=== PATIENT | female | born 1945 | race Caucasian/White ===

== ENCOUNTER 2016-04-18 22:01 | Inpatient (IN) | payer MEDICARE ==
[~2016-04-18] VITALS: Ht 175.3 cm; Wt 89.4 kg
[~2016-04-18 22:01] MED LIST: ALBU18HF2 INH; BENZ-16 PO; BENZ100C97 PO; CINN500C14 PO; DULO20CA PO; DULO30CA2 PO; FURO40TA5 PO; INSU100I14 SQ; INSU3INS3 SQ; LABE200T PO; LEVO500T63 PO; MAGN400C PO; MAGN400T6 PO; MULT-798 PO; POTA10CA37 PO; PRED10TA PO; PREG50CA PO; SIMV40TA82 PO; ZINC50TA39 PO
--- OUTSIDE RECORDS SUMMARY | 2016-04-18 22:13 | XMS REPORT | Continuity of Care Document ---
Author Author [facility] Organization [facility] Address Unknown Phone Unavailable Care Team Providers Care Musician Instrumental Name Role Phone JOSE HUGHES MD Primary Care Physician [phone] Insurance Providers Payer Name Policy Number Subscriber Name Relationship Medicarehumana Gold Hmo [id number] Yadira Gramajo 17 Self Advance Directives Directive Response Recorded Date/Time Advanced Directives Type DNR Documentation 01/12/14 9:39am Problems Medical Problems Problem Onset Date Status History of COPD Unknown Active Right lower lobe pneumonia Unknown Active History of COPD Unknown Active Hypertensive emergency Unknown Active CHF (congestive heart failure) Unknown Active Pneumonia Unknown Active Hypertensive emergency Unknown Active History of pneumonia Unknown Active Hypertensive emergency Unknown Active Medications Medication Dose Route Sig Days/Qty Instructions Order Date Discontinued Date Status Duloxetine Hcl 1 Cap PO DAILY 09/10/12 Active Pregabalin 1 Cap PO TWICE A DAY 09/10/12 Active Metoprolol Tartrate 1 Tab PO TWICE A DAY 09/10/12 Active Furosemide 1 Tab PO TWICE A DAY 09/10/12 Active Potassium Chloride 1 Cap PO TWICE A DAY 09/10/12 Active Simvastatin 1 Tab PO BEDTIME 09/10/12 Active Fish Oil/[place]-3 Fatty Acids 1 Cap PO DAILY 09/11/12 Active Multivits W-Ca,Fe,Other Min 1 Tab PO DAILY 09/11/12 Active Vitamin E 400 Unit PO DAILY 09/11/12 Active Ergocalciferol 400 Unit PO DAILY 09/11/12 Active Magnesium 200 Mg PO DAILY 2 tab, 400mg po daily 09/11/12 Active Ipratropium/Albuterol Sulfate 14.7 Gm IH FOUR TIMES DAILY 1 Qty Active Aspirin 325 Mg PO 01/12/14 Active Levofloxacin DAILY 01/12/14 Active Lisinopril 10 Mg PO DAILY 01/12/14 Active Lisinopril 1 Tab PO BEDTIME 01/12/14 Active Lisinopril 20 Mg PO BEDTIME Take 1 tablet, by mouth, one time a day (at BEDTIME). 01/12/14 Active Amlodipine Besylate 5 Mg PO DAILY 30 Qty 01/12/14 Active Social History Social History Problem Response Recorded Date/Time Smoking Status Current every day smoker 06/24/2013 11:50pm When did patient START smoking? 1960 01/12/2014 9:40am Chewing Tobacco Status No 06/24/2013 11:50pm Hx Substance Use No 01/12/2014 9:40am Hx Alcohol Use No 01/12/2014 9:40am Has the pt used tobacco in the last 12 months Yes 09/10/2012 9:58am Query Response Start Date Stop Date Smoking Status Current some day smoker Hospital Discharge Instructions No hospital discharge instructions. Plan of Care No plan of care. Functional Status Query Response Date Recorded Physical Hygiene Self January 12, 2014 9:40am Disabilities None January 12, 2014 9:40am Devices Used Wheelchair January 12, 2014 9:40am Dressing Self January 12, 2014 9:40am Ambulation Self January 12, 2014 9:40am Diet Self January 12, 2014 9:40am Mental Status Alert Oriented January 12, 2014 12:04pm Disabilities None January 12, 2014 9:40am Devices Used Wheelchair January 12, 2014 9:40am Physical Hygiene Self January 12, 2014 9:40am Dressing Self January 12, 2014 9:40am Ambulation Self January 12, 2014 9:40am Diet Self January 12, 2014 9:40am Allergies, Adverse Reactions, Alerts Allergen Type Severity Reaction Status Last Updated Penicillin Allergy Unknown Active 06/25/13 Sulfa (Sulfonamide Antibiotics) Allergy Unknown Active 06/25/13 Immunizations Name Given Type Hx Influenza Vaccination Y FALL 2011 Historical Hx Pneumococcal Vaccination Y WITHIN THE PAST 5 YEARS Historical Hx Influenza Vaccination Y FALL 2011 Historical Vital Signs Acute Vital Signs Vital Response Date/Time Temperature (Fahrenheit) 96.6 deg F (96.8 - 99.1) Temperature (Calculated Celsius) 35.97756 degrees C (36.0 - 37.3) Pulse Rate (adult) 60 bpm (60 - 100) Respiratory Rate 16 breaths/min (10 - 20) O2 Sat by Pulse Oximetry 94 % (90 - 100) Oxygen Flow Rate 4 L/min Blood Pressure 145/66 mm Hg Height 5 ft 9 in Weight 195 lb Body Mass Index 28.0 kg/m^2 Results Test Source Date Result Interp. Ref. Range Comments Alanine Aminotransferase (ALT/SGPT) January 12, 2014 10:42am 31 U/L N 9 -52 Albumin January 12, 2014 10:42am 4.0 G/DL N 3.5-5.0 Albumin/Globulin Ratio January 12, 2014 10:42am 1.3 RATIO N 1.1-2.2 Alkaline Phosphatase January 12, 2014 10:42am 91 U/L N 38-126 Anion Gap January 12, 2014 10:42am 10 MEQ/L N 5-15 Aspartate Amino Transf (AST/SGOT) January 12, 2014 10:42am 22 U/L N 14- 36 BUN/Creatinine Ratio January 12, 2014 10:42am 20 RATIO N 6-26 Band Neutrophils # September 01, 2013 3:13pm 0.1 T/MM3 - Band Neutrophils % September 01, 2013 3:13pm 1.0 % N 0-6 Basophils # (Auto) January 12, 2014 10:42am 0.1 T/MM3 N 0-0.2 Basophils # (Manual) August 25, 2013 3:20pm 0.0 T/MM3 N 0-0.2 Basophils % (Manual) August 25, 2013 3:20pm 0.0 % N 0-2 Basophils (%) (Auto) January 12, 2014 10:42am 1.1 % N 0-2 Blood Urea Nitrogen January 12, 2014 10:42am 16.0 MG/DL N 7-17 C-Reactive Protein September 15, 2013 9:40am 7.3 MG/L N 0-9 Calcium Level January 12, 2014 10:42am 10.7 MG/DL H 8.4-10.2 Calculated Osmolality January 12, 2014 10:42am 275 MOSM/KG N 261-280 Carbon Dioxide Level January 12, 2014 10:42am 35 MEQ/L H 22-30 Chloride Level January 12, 2014 10:42am 95 MEQ/L L 98-107 Creatinine January 12, 2014 10:42am 0.8 MG/DL N 0.7-1.2 Differential Total Cells Counted May 25, 2008 2:14pm 100 % - Eosinophils # (Auto) January 12, 2014 10:42am 0.2 T/MM3 N 0-0.5 Eosinophils # (Manual) September 08, 2013 2:45pm 0.3 T/MM3 N 0-0.5 Eosinophils % (Manual) September 08, 2013 2:45pm 3.0 % N 0-4 Eosinophils (%) (Auto) January 12, 2014 10:42am 1.8 % N 0-4 Erythrocyte Sedimentation Rate September 15, 2013 9:40am 3 MM/HR N 0-20 Globulin January 12, 2014 10:42am 3.0 G/DL N 2.4-3.6 Glucose Level January 12, 2014 10:42am 197 MG/DL H 65-110 Hematocrit January 12, 2014 10:42am 47.4 % H 36-46 Hemoglobin January 12, 2014 10:42am 15.5 GM/DL N 12-16 Lipase September 11, 2012 10:20am 428 U/L H 23-300 COMMENT WILL CALL WHEN PT IS ADMITTED Lymphocytes # (Auto) January 12, 2014 10:42am 1.2 T/MM3 N 1-4.8 Lymphocytes # (Manual) September 08, 2013 2:45pm 1.5 T/MM3 N 1-4.8 Lymphocytes % (Manual) September 08, 2013 2:45pm 17.0 % L 23-45 Lymphocytes (%) (Auto) January 12, 2014 10:42am 10.9 % L 23-45 Magnesium Level September 15, 2013 9:40am 1.7 MG/DL N 1.6-2.3 Mean Corpuscular Hemoglobin January 12, 2014 10:42am 30.3 UUG N 26-34 Mean Corpuscular Hemoglobin Concent January 12, 2014 10:42am 32.7 GM/DL N 31-37 Mean Corpuscular Volume January 12, 2014 10:42am 92.8 UM3 N 80-100 Mean Platelet Volume January 12, 2014 10:42am 10.1 UM3 N 9.4-12.4 Monocytes # (Auto) January 12, 2014 10:42am 0.4 T/MM3 N 0-0.8 Monocytes # (Manual) September 08, 2013 2:45pm 0.5 T/MM3 N 0-0.8 Monocytes % (Manual) September 08, 2013 2:45pm 6.0 % N 0-9.0 Monocytes (%) (Auto) January 12, 2014 10:42am 4.0 % N 0-9.0 Neutrophils # (Auto) January 12, 2014 10:42am 8.8 T/MM3 H 1.8-7.7 Neutrophils # (Manual) September 08, 2013 2:45pm 6.4 T/MM3 N 1.8-7.7 Neutrophils % (Manual) September 08, 2013 2:45pm 73.0 % H 33-66 Neutrophils (%) (Auto) January 12, 2014 10:42am 81.8 % H 33-66 Platelet Count January 12, 2014 10:42am 198 T/MM3 N 130-400 Potassium Level January 12, 2014 10:42am 4.9 MEQ/L N 3.6-5 RDW Standard Deviation January 12, 2014 10:42am 47.0 FL N 36.9-50.2 Reactive Lymphocytes May 18, 2008 2:25pm 3.0 % H 0-0 Red Blood Count January 12, 2014 10:42am 5.11 M/MM3 N 4.00-5.20 Sodium Level January 12, 2014 10:42am 140 MEQ/L N 134-144 Total Bilirubin January 12, 2014 10:42am 0.70 MG/DL N 0.20-1.30 Total Protein January 12, 2014 10:42am 7.0 G/DL N 6.3-8.2 Troponin I January 12, 2014 10:42am < 0.012 ng/ml 0-0.12 Vancomycin Level Trough September 15, 2013 9:40am 18.35 UG/ML N 15-20 White Blood Count January 12, 2014 10:42am 10.7 T/MM3 N 4.5-11.0 Chemistry Specimen Hemolysis January 12, 2014 10:42am < 15 0-25 0-25 : No Hemolysis.26-70: Slight Hemolysis - can falsely elevate K and Urine Protein. 71-285: Moderate Hemolysis - can falsely elevate K, Troponin I, CA 19-9, PTH, CSF GLucose, and Urine Protein, and can falsely decrease Phenytoin. 286-999: Gross Hemolysis - can falsely elevate K, Troponin I, CA 19-9, PTH, CSF Glucose, and Urine Protine, and can falsely decrease Phenytoin. Recommend specimen recollection. Lab Scanned Report September 15, 2013 8:08pm LAB TEST FORM REQUEST [id number] - Atypical/Reactive Lymphocytes May 18, 2008 2:25pm 0.2 T/MM3 H 0-0 Turbidity January 12, 2014 10:42am < 20 0-20 Reactive Lymphocytes % September 08, 2013 2:45pm 1.0 % DH 0-0 Glomerular Filtration Rate Calc January 12, 2014 10:42am 71 - Reactive Lymphocytes # September 08, 2013 2:45pm 0.1 T/MM3 H 0-0 Immature Granulocyte # (Auto) January 12, 2014 10:42am 0.04 T/MM3 H 0.00-0.03 Immature Granulocyte % (Auto) January 12, 2014 10:42am 0.4 % N 0.0-0.5 Venous Blood Lactate June 25, 2013 12:05am 2.7 MMOL/L H 0.6-2.2 Procalcitonin June 25, 2013 12:05am < 0.05 NG/ML - PCT </=0.5 ng/mL - sepsis not likely;PCT >0.5 and </=2 ng/mL - sepsis possible; PCT >2 ng/mL - sepsis likely; PCT >/=10 ng/mL - systemic inflammatory response - sepsis or septic shock highly indicated. Icterus Index January 12, 2014 10:42am < 2 0-7 AD-Pqh-Z-Type Natriuretic Peptide January 12, 2014 10:42am 1030 PG/ML H 0-175 Rule in cut points: <50 years old=450; 50-75 years old=900; >75 years old=1800; When utilizing ProBNP rule-in cut points, adjustment for impaired renal function is typically not required. Blood Culture Blood June 25, 2013 12:05am NO GROWTH AFTER 5 DAYS Name: YADIRA GRAMAJO Unit #: [id number] : 1945 Sex: F Loc / Svc: ED DOS: Signed Report #: [id number] DIAGNOSTIC IMAGING REPORT TYPE OF EXAM: CT HEAD W/O CONTRAST Dictated By: RICO ROCHA MD INDICATION: ITS.REASON: hypertensive emergency COMPARISON: none. CT HEAD W/O CONTRAST: Evidence of mild chronic small vessel ischemic changes in the brain. No evidence of significant atrophy. No evidence of acute infarct, hemorrhage, tumor, or significant ventriculomegaly. IMPRESSION: Small vessel ischemic findings. No evidence of acute disease. . Procedures No known history of procedures. Encounters Encounter Location Date/Time Departed Emergency Room [facility] 01/12/14 9:30am Recent Diagnosis
--- OUTSIDE RECORDS SUMMARY | 2016-04-18 22:13 | XMS REPORT | Continuity of Care Document ---
Author Author [facility] Organization [facility] Address Unknown Phone Unavailable Care Team Providers Care Doper Name Role Phone JOSE HUGHES MD Primary Care Physician [phone] Insurance Providers Payer Name Policy Number Subscriber Name Relationship Medicarehumana Gold Hmo [id number] Yadira Gramajo 17 Self Advance Directives Directive Response Recorded Date/Time Ordered Resuscitation Status Full Code 06/03/14 7:19am Problems Medical Problems Problem Onset Date Status [...] TWICE A DAY 09/10/12 Active Metoprolol Tartrate 0.5 Tab PO TWICE A DAY 09/10/12 Active Simvastatin 1 Tab PO BEDTIME 09/10/12 Active Fish Oil/[place]-3 Fatty Acids 1 Cap PO DAILY 09/11/12 Active Multivits W-Ca,Fe,Other Min 1 Tab PO DAILY 09/11/12 Active Vitamin E 400 Unit PO DAILY 09/11/12 Active Ipratropium/Albuterol Sulfate 14.7 Gm IH FOUR TIMES DAILY 1 Qty Inhale 1 puff QID 06/25/13 Active Duloxetine HCl 1 Cap PO BEDTIME 06/03/14 Active Amlodipine Besylate 0.5 Tab PO DAILY 06/03/14 Active Magnesium Oxide 400 Mg PO DAILY 06/03/14 Active Vitamin A Palmitate 1 Cap PO DAILY 06/03/14 Active Vitamin B Complex 1 Cap PO DAILY 06/03/14 Active Ascorbic Acid Unknown Dose PO DAILY 06/03/14 Active Cholecalciferol (Vitamin D3) Unknown Dose 06/03/14 Active Sulfamethoxazole/Trimethoprim 1 Tab PO TWICE A DAY 06/03/14 Active Aspirin 1 Tab PO DAILY 06/03/14 Active Insulin Lispro 12 Dose SQ THREE TIMES A DAY 06/03/14 Active Insulin Glargine,Hum.rec.anlog 30 Unit SQ BEDTIME 06/03/14 Active Social History Social History Problem Response Recorded Date/Time Chewing Tobacco Status No 06/24/2013 11:50pm Hx Substance Use No 06/03/2014 10:58am Hx Alcohol Use No 06/03/2014 10:58am Has the pt used tobacco in the last 12 months Yes 06/03/2014 10:58am Query Response Start Date Stop Date Smoking Status Current every day smoker Hospital Discharge Instructions No hospital discharge instructions. Plan of Care No plan of care. Functional Status Query Response Date Recorded Physical Hygiene Self January 12, 2014 9:40am Physical Hygiene Self January 12, 2014 9:40am Allergies, Adverse Reactions, Alerts Allergen Type Severity Reaction Status Last Updated Penicillin Allergy Unknown Active 06/25/13 Sulfa (Sulfonamide Antibiotics) Allergy Unknown Active 06/25/13 Minocycline Allergy Intermediate HIVES Active 06/03/14 Immunizations Name Given Type Hx Influenza Vaccination Y FALL 2013 Historical Hx Pneumococcal Vaccination 2013 Historical Hx Influenza Vaccination Y FALL 2013 Historical Vital Signs Acute Vital Signs Vital Response Date/Time Temperature (Fahrenheit) 97.5 deg F (96.8 - 99.1) Temperature (Calculated Celsius) 36.98504 degrees C (36.0 - 37.3) Pulse Rate (adult) 93 bpm (60 - 100) O2 Sat by Pulse Oximetry 91 % (90 - 100) Oxygen Delivery Method Room Air Height 5 ft 6 in Weight 207 lb Body Mass Index 33.0 kg/m^2 Results Test Source Date Result Interp. Ref. Range Comments Alanine Aminotransferase (ALT/SGPT) May 14, 2014 12:33pm 39 U/L N 9- 52 Albumin May 18, 2014 2:52pm 4.2 G/DL N 3.5-5.0 Albumin/Globulin Ratio May 14, 2014 12:33pm 1.3 RATIO N 1.1-2.2 Alkaline Phosphatase May 14, 2014 12:33pm 73 U/L N 38-126 Anion Gap June 03, 2014 10:39am 12 MEQ/L N 5-15 COMMENT RN WILL CALL ON ARRIVAL Aspartate Amino Transf (AST/SGOT) May 14, 2014 12:33pm 39 U/L H 14-36 Atypical/Reactive Lymphocytes May 18, 2008 2:25pm 0.2 T/MM3 H 0-0 BUN/Creatinine Ratio June 03, 2014 10:39am 23 RATIO N 6-26 COMMENT RN WILL CALL ON ARRIVAL Band Neutrophils # September 01, 2013 3:13pm 0.1 T/MM3 - Band Neutrophils % September 01, 2013 3:13pm 1.0 % N 0-6 Basophils # (Auto) June 03, 2014 10:39am 0.1 T/MM3 N 0-0.2 COMMENT RN WILL CALL ON ARRIVAL Basophils # (Manual) August 25, 2013 3:20pm 0.0 T/MM3 N 0-0.2 Basophils % (Manual) August 25, 2013 3:20pm 0.0 % N 0-2 Basophils (%) (Auto) June 03, 2014 10:39am 1.1 % N 0-2 COMMENT RN WILL CALL ON ARRIVAL Blood Urea Nitrogen June 03, 2014 10:39am 16.0 MG/DL N 7-17 COMMENT RN WILL CALL ON ARRIVAL C-Reactive Protein May 18, 2014 2:52pm 9.9 MG/L H 0-9 Calcium Level June 03, 2014 10:39am 9.7 MG/DL N 8.4-10.2 COMMENT RN WILL CALL ON ARRIVAL Calculated Osmolality June 03, 2014 10:39am 274 MOSM/KG N 261-280 COMMENT RN WILL CALL ON ARRIVAL Carbon Dioxide Level June 03, 2014 10:39am 25 MEQ/L N 22-30 COMMENT RN WILL CALL ON ARRIVAL Chemistry Specimen Hemolysis June 03, 2014 10:39am < 15 0-25 0-25: No Hemolysis.26-70: Slight Hemolysis - can falsely elevate K and Urine Protein. 71-285: Moderate Hemolysis - can falsely elevate K, Troponin I, CA 19-9, PTH, CSF GLucose, and Urine Protein, and can falsely decrease Phenytoin. 286-999: Gross Hemolysis - can falsely elevate K, Troponin I, CA 19-9, PTH, CSF Glucose, and Urine Protine, and can falsely decrease Phenytoin. Recommend specimen recollection. Chloride Level June 03, 2014 10:39am 104 MEQ/L N 98-107 COMMENT RN WILL CALL ON ARRIVAL Creatinine June 03, 2014 10:39am 0.7 MG/DL N 0.7-1.2 COMMENT RN WILL CALL ON ARRIVAL Differential Total Cells Counted May 25, 2008 2:14pm 100 % - Eosinophils # (Auto) June 03, 2014 10:39am 0.2 T/MM3 N 0-0.5 COMMENT RN WILL CALL ON ARRIVAL Eosinophils # (Manual) September 08, 2013 2:45pm 0.3 T/MM3 N 0-0.5 Eosinophils % (Manual) September 08, 2013 2:45pm 3.0 % N 0-4 Eosinophils (%) (Auto) June 03, 2014 10:39am 2.0 % N 0-4 COMMENT RN WILL CALL ON ARRIVAL Erythrocyte Sedimentation Rate May 18, 2014 2:52pm 7 mm/hr - Sedimentation Rate performed at [facility] Reference Lab, [address] [place] [address], [place], [id number] Contract Runner Rah Granados DO Globulin May 14, 2014 12:33pm 3.2 G/DL N 2.4-3.6 Glomerular Filtration Rate Calc June 03, 2014 10:39am 83 - COMMENT RN WILL CALL ON ARRIVAL Glucose Level June 03, 2014 10:39am 137 MG/DL H 65-110 COMMENT RN WILL CALL ON ARRIVAL Hematocrit June 03, 2014 10:39am 43.8 % N 36-46 COMMENT RN WILL CALL ON ARRIVAL Hemoglobin June 03, 2014 10:39am 14.8 GM/DL N 12-16 COMMENT RN WILL CALL ON ARRIVAL Icterus Index June 03, 2014 10:39am < 2 0-7 COMMENT RN WILL CALL ON ARRIVAL Immature Granulocyte # (Auto) June 03, 2014 10:39am 0.02 T/MM3 N 0.00- 0.03 COMMENT RN WILL CALL ON ARRIVAL Immature Granulocyte % (Auto) June 03, 2014 10:39am 0.3 % N 0.0-0.5 COMMENT RN WILL CALL ON ARRIVAL Lab Scanned Report May 18, 2014 4:29pm LAB TEST FORM REQUEST - Lipase September 11, 2012 10:20am 428 U/L H 23-300 COMMENT WILL CALL WHEN PT IS ADMITTED Lymphocytes # (Auto) June 03, 2014 10:39am 1.8 T/MM3 N 1-4.8 COMMENT RN WILL CALL ON ARRIVAL Lymphocytes # (Manual) September 08, 2013 2:45pm 1.5 T/MM3 N 1-4.8 Lymphocytes % (Manual) September 08, 2013 2:45pm 17.0 % L 23-45 Lymphocytes (%) (Auto) June 03, 2014 10:39am 24.3 % N 23-45 COMMENT RN WILL CALL ON ARRIVAL Magnesium Level May 18, 2014 2:52pm 1.6 MG/DL N 1.6-2.3 Mean Corpuscular Hemoglobin June 03, 2014 10:39am 31.7 UUG N 26-34 COMMENT RN WILL CALL ON ARRIVAL Mean Corpuscular Hemoglobin Concent June 03, 2014 10:39am 33.8 GM/DL N 31-37 COMMENT RN WILL CALL ON ARRIVAL Mean Corpuscular Volume June 03, 2014 10:39am 93.8 UM3 N 80-100 COMMENT RN WILL CALL ON ARRIVAL Mean Platelet Volume June 03, 2014 10:39am 10.0 UM3 N 9.4-12.4 COMMENT RN WILL CALL ON ARRIVAL Monocytes # (Auto) June 03, 2014 10:39am 0.4 T/MM3 N 0-0.8 COMMENT RN WILL CALL ON ARRIVAL Monocytes # (Manual) September 08, 2013 2:45pm 0.5 T/MM3 N 0-0.8 Monocytes % (Manual) September 08, 2013 2:45pm 6.0 % N 0-9.0 Monocytes (%) (Auto) June 03, 2014 10:39am 5.9 % N 0-9.0 COMMENT RN WILL CALL ON ARRIVAL EY-Mhf-V-Type Natriuretic Peptide January 12, 2014 10:42am 1030 PG/ML H 0-175 Rule in cut points: <50 years old=450; 50-75 years old=900; >75 years old=1800; When utilizing ProBNP rule-in cut points, adjustment for impaired renal function is typically not required. Neutrophils # (Auto) June 03, 2014 10:39am 4.9 T/MM3 N 1.8-7.7 COMMENT RN WILL CALL ON ARRIVAL Neutrophils # (Manual) September 08, 2013 2:45pm 6.4 T/MM3 N 1.8-7.7 Neutrophils % (Manual) September 08, 2013 2:45pm 73.0 % H 33-66 Neutrophils (%) (Auto) June 03, 2014 10:39am 66.4 % H 33-66 COMMENT RN WILL CALL ON ARRIVAL Platelet Count June 03, 2014 10:39am 169 T/MM3 N 130-400 COMMENT RN WILL CALL ON ARRIVAL Potassium Level June 03, 2014 10:39am 4.8 MEQ/L N 3.6-5 COMMENT RN WILL CALL ON ARRIVAL Prealbumin May 18, 2014 2:52pm 35.1 MG/DL N 17.6-36.0 Procalcitonin June 25, 2013 12:05am < 0.05 NG/ML - PCT </=0.5 ng/mL - sepsis not likely;PCT >0.5 and </=2 ng/mL - sepsis possible; PCT >2 ng/mL - sepsis likely; PCT >/=10 ng/mL - systemic inflammatory response - sepsis or septic shock highly indicated. RDW Standard Deviation June 03, 2014 10:39am 46.1 FL N 36.9-50.2 COMMENT RN WILL CALL ON ARRIVAL Reactive Lymphocytes May 18, 2008 2:25pm 3.0 % H 0-0 Reactive Lymphocytes # September 08, 2013 2:45pm 0.1 T/MM3 H 0-0 Reactive Lymphocytes % September 08, 2013 2:45pm 1.0 % DH 0-0 Red Blood Count June 03, 2014 10:39am 4.67 M/MM3 N 4.00-5.20 COMMENT RN WILL CALL ON ARRIVAL Sodium Level June 03, 2014 10:39am 141 MEQ/L N 134-144 COMMENT RN WILL CALL ON ARRIVAL Total Bilirubin May 14, 2014 12:33pm 0.60 MG/DL N 0.20-1.30 Total Protein May 14, 2014 12:33pm 7.4 G/DL N 6.3-8.2 Troponin I January 12, 2014 10:42am < 0.012 ng/ml 0-0.12 Turbidity June 03, 2014 10:39am < 20 0-20 COMMENT RN WILL CALL ON ARRIVAL Vancomycin Level Trough September 15, 2013 9:40am 18.35 UG/ML N 15-20 Venous Blood Lactate June 25, 2013 12:05am 2.7 MMOL/L H 0.6-2.2 White Blood Count June 03, 2014 10:39am 7.3 T/MM3 N 4.5-11.0 COMMENT RN WILL CALL ON ARRIVAL Blood Culture Blood June 25, 2013 12:05am NO GROWTH AFTER 5 DAYS Name: YADIRA GRAMAJO Unit #: [id number] : 1945 Sex: F Loc / Svc: [facility]EL[facility] DOS: 05/26/14 Signed Report #: [id number] DIAGNOSTIC IMAGING REPORT TYPE OF EXAM: US ARTERIAL EXTREMITY LOWER LT Dictated By: ADRIA CLARK MD Indication: Ulcer of the left foot and heel. Technique: Grayscale color and duplex Doppler imaging was performed of the arterial tree of the left leg. Findings: LEFT LEG (cm/sec) Common Femoral 175 Superficial Femoral Proximal 177 Mid 156 Distal 175 Popliteal 118 NEFTALI-prox 57.9 MEDICINAL CHEMIST-prox 85.4 NEFTALI-dist 57.2 MEDICINAL CHEMIST-dist 51.5 Normal multiphasic waveforms are seen throughout the left lower extremity arterial system. No arterial occlusion seen. Dorsalis pedis artery appears widely patent. IMPRESSION: No hemodynamically significant arterial stenosis identified. Mildly elevated velocities in the common and superficial femoral arteries suggest a narrowing in the range of 20-40%. . Procedures Procedure Status Date Provider(s) ROUTINE VENIPUNCTURE completed 03/31/14 METABOLIC PANEL TOTAL CA completed 03/31/14 METABOLIC PANEL TOTAL CA completed 04/02/14 ASSAY OF MAGNESIUM completed 04/02/14 ROUTINE VENIPUNCTURE completed 04/10/14 METABOLIC PANEL TOTAL CA completed 04/10/14 ASSAY OF MAGNESIUM completed 04/10/14 ROUTINE VENIPUNCTURE completed 04/23/14 METABOLIC PANEL TOTAL CA completed 04/23/14 ASSAY OF MAGNESIUM completed 04/23/14 ROUTINE VENIPUNCTURE completed 04/30/14 METABOLIC PANEL TOTAL CA completed 04/30/14 ASSAY OF SERUM ALBUMIN completed 04/30/14 ASSAY OF MAGNESIUM completed 04/30/14 ASSAY OF PREALBUMIN completed 04/30/14 COMPLETE CBC W/AUTO DIFF WBC completed 04/30/14 ROUTINE VENIPUNCTURE completed 05/14/14 COMPREHEN METABOLIC PANEL completed 05/14/14 ROUTINE VENIPUNCTURE completed 05/16/14 ASSAY OF MAGNESIUM completed 05/16/14 ASSAY OF SERUM POTASSIUM completed 05/16/14 ROUTINE VENIPUNCTURE completed 05/18/14 ASSAY OF MAGNESIUM completed 05/18/14 ASSAY OF SERUM POTASSIUM completed 05/18/14 LOWER EXTREMITY STUDY completed 05/19/14 ROUTINE VENIPUNCTURE completed 05/18/14 ASSAY OF SERUM ALBUMIN completed 05/18/14 ASSAY OF PREALBUMIN completed 05/18/14 COMPLETE CBC W/AUTO DIFF WBC completed 05/18/14 RBC SED RATE AUTOMATED completed 05/18/14 C-REACTIVE PROTEIN completed 05/18/14 EXTREMITY STUDY completed 05/25/14 LOWER EXTREMITY STUDY completed 05/26/14 Encounters Encounter Location Date/Time Departed [facility] 06/03/14 9:29am Registered [facility] 05/26/14 3:37pm Registered [facility] 05/25/14 12:48pm Registered Clinic [facility] 05/19/14 4:23pm Registered [facility] 05/18/14 2:33pm Registered [facility] 05/18/14 2:11pm Registered [facility] 05/16/14 12:16pm Registered [facility] 05/14/14 12:17pm Registered [facility] 04/30/14 6:27pm Registered [facility] 04/23/14 4:55pm Registered [facility] 04/10/14 4:52pm Registered [facility] 04/02/14 10:14am Registered [facility] 03/31/14 10:01am
--- OUTSIDE RECORDS SUMMARY | 2016-04-18 22:15 | XMS REPORT | Continuity of Care Document ---
Author Author [facility] Organization [facility] Address Unknown Phone Unavailable Care Team Providers Care Herbarium Curator Name Role Phone JOSE HUGHES MD Primary Care Physician [phone] Insurance Providers Payer Name Policy Number Subscriber Name Relationship Medicarehumana Gold Hmo [id number] Yadira Gramajo 17 Self Advance Directives Directive [...] 1 Tab PO BEDTIME 09/10/12 Active Fish Oil/[place]-3 Fatty Acids 1 Cap PO DAILY 09/11/12 [...] F (96.8 - 99.1) Temperature (Calculated Celsius) 35.13896 degrees C (36.0 - 37.3) Pulse Rate [...] 15, 2013 8:08pm LAB TEST FORM REQUEST [id number] - Atypical/Reactive Lymphocytes May 18, 2008 2:25pm [...] January 12, 2014 10:42am < 2 0-7 OP-Wxn-G-Type Natriuretic Peptide January 12, 2014 10:42am 1030 PG/ML H 0-175 Rule in cut points: <50 years old=450; 50-75 years old=900; >75 years old=1800; When utilizing ProBNP rule-in cut points, adjustment for impaired renal function is typically not required. Blood Culture Blood June 25, 2013 12:05am NO GROWTH AFTER 5 DAYS Name: YADIRA GRAMAJO Unit #: [id number] : 1945 Sex: F Loc / Svc: ED DOS: Signed Report #: [id number] DIAGNOSTIC IMAGING REPORT TYPE OF EXAM: CT [...] Encounters Encounter Location Date/Time Departed Emergency Room [facility] 01/12/14 9:30am Recent Diagnosis
--- OUTSIDE RECORDS SUMMARY | 2016-04-18 22:16 | XMS REPORT | Continuity of Care Document ---
Author Author [facility] Organization [facility] Address Unknown Phone Unavailable Care Team Providers Care Flooring Machine Feeder Name Role Phone JOSE HUGHES MD Primary Care Physician [phone] Insurance Providers Payer Name Policy Number Subscriber Name Relationship Medicarehumana Gold Hmo [id number] Yadira Gramajo 17 Self Advance Directives Directive [...] 1 Tab PO BEDTIME 09/10/12 Active Fish Oil/[place]-3 Fatty Acids 1 Cap PO DAILY 09/11/12 [...] F (96.8 - 99.1) Temperature (Calculated Celsius) 36.99316 degrees C (36.0 - 37.3) Pulse Rate [...] 7 mm/hr - Sedimentation Rate performed at [facility] Reference Lab, [address] [place] [address], [place], [id number] Wildlife Conservationist Rah Granados DO Globulin May 14, 2014 [...] 0-9.0 COMMENT RN WILL CALL ON ARRIVAL WS-Hrw-V-Type Natriuretic Peptide January 12, 2014 10:42am 1030 [...] 5 DAYS Name: YADIRA GRAMAJO Unit #: [id number] : 1945 Sex: F Loc / Svc: MANUELA DOS: 05/26/14 Signed Report #: [id number] DIAGNOSTIC IMAGING REPORT TYPE OF EXAM: US ARTERIAL EXTREMITY LOWER LT Dictated By: ADRIA CLARK MD Indication: Ulcer of the left foot and heel. Technique: Grayscale color and duplex Doppler imaging was performed of the arterial tree of the left leg. Findings: LEFT LEG (cm/sec) Common Femoral 175 Superficial Femoral Proximal 177 Mid 156 Distal 175 Popliteal 118 NEFTALI-prox 57.9 SHIPBUILDING DRAFTSPERSON-prox 85.4 NEFTALI-dist 57.2 SHIPBUILDING DRAFTSPERSON-dist 51.5 Normal multiphasic waveforms are seen throughout [...] completed 05/26/14 Encounters Encounter Location Date/Time Departed [facility] 06/03/14 9:29am Registered [facility] 05/26/14 3:37pm Registered [facility] 05/25/14 12:48pm Registered Clinic [facility] 05/19/14 4:23pm Registered [facility] 05/18/14 2:33pm Registered [facility] 05/18/14 2:11pm Registered [facility] 05/16/14 12:16pm Registered [facility] 05/14/14 12:17pm Registered [facility] 04/30/14 6:27pm Registered [facility] 04/23/14 4:55pm Registered [facility] 04/10/14 4:52pm Registered [facility] 04/02/14 10:14am Registered [facility] 03/31/14 10:01am
[2016-04-18] MEDS ORDERED: ALBUTEROL/IPRATROPIUM INHAL. 2.5mg-0.5mg/3ml Neb. AEROSOL ONE (22:45)
[2016-04-18] MEDS ORDERED: HYDROMORPHONE 2mg/ml INJECTION IV ONE (22:45)
--- NOTE | 2016-04-18 22:45 | ERPDOC ---
Departure Disposition Decision Date: Apr 19, 2016 Disposition Decision Time: 00:13 Disposition: 02 TO [facility] Impression Impression Impression: Primary Impression: COPD exacerbation Additional Impression: Hypoxemia Severity: Severe Condition: Improved Seen By: Physician only Referrals: JOSE LIMON MD (PCP) Problems/Meds/Labs Reviewed?: Yes Medications reviewed and manag: Yes Follow up care ordered?: Yes Mental Status: Alert, Oriented Critical Care Note Total Time (mins): 40 Critical Care Spent: Behw-hw-caft care of pt, Reviewing test results, Discuss the case w/staff, Documenting the MR, Discussion w/ family/DPOA During this visit the pt was: At Risk of Deterioration HPI - Dyspnea General Chief Complaint: Dyspnea/Respdistress Stated Complaint: DIFF BREATHING Time Seen by Provider: 22:09 Source: patient, family Exam Limitations: no limitations HPI - Dyspnea Initial Comments Patient was just released yesterday from [facility] after a 9 day admission status post fall downstairs which she had several broken ribs on the left. Patient went home this afternoon, over the course of 6-8 hours had significant worsening in her dyspnea feeling as though she simply couldn't catch her breath. Patient is taking [place] 5 per pain, took 5 at home without relief of the dyspnea earlier today. Patient admits that she has returned to smoking, but states that she smoking less than her normal pack per day. Family notes that the patient seems to smoke more than a pack a day in their estimation. Patient has used her nebulizer machine with albuterol today with little relief. Patient finally called EMS [place], during transport was given one albuterol treatment nebulized, and seem to be improving after that. She was dismissed on 4 L nasal cannula oxygen, where her routine is normally 2 L. Tonight when EMS picked her up they need to use a nonrebreather mask to get her O2 saturations up, but patient has been weaned down to 5 L nasal cannula, and her saturations appear stable Occurred At: home Onset/Timing: Rapid Duration: 6-12 hrs Severity: moderate, severe Associated Symptoms: cough, fever/chills, shortness of breath, DENIES: chest pain, diaphoresis, headaches, loss of appetite, malaise, nausea/vomiting, rash, seizure, syncope, weakness Hx of Similar Symptoms: Yes Allergies: Coded Allergies: minocycline (Verified Allergy, Intermediate, HIVES, 6/12/15) Penicillins (Verified Allergy, Unknown, 08/14/14) Sulfa (Sulfonamide Antibiotics) (Verified Allergy, Unknown, 08/14/14) Past History Past Medical History Metabolic: diabetes, hypercholesterolemia, hypertension Cardiac: CHF Respiratory: COPD, pneumonia GI: GERD Neurological: neuropathy Psychological: depression Surgical History General: appendix Reproductive/: hysterectomy Family History Family PMH: FOUND: cancer Vaccines Hx Influenza Vaccination: Yes (Feb 2016) Hx Pneumococcal Vaccination: Yes (2014) Social History Smoking Status: Current every day smoker Does patient use chewing tobac: No Second Hand Exposure: No Substance Use Type: does not use Alcohol Intake: none Marital Status: Sexuality: male partner Household Members: spouse Record Review Pertinent history updated: Yes Review of Systems Constitutional Constitutional: chills, DENIES: anorexia, appetite decrease, appetite increase , dizziness, fatigue, fever, night sweats, syncope, weakness ENMT Ears: DENIES: pain Hearing: DENIES: hearing loss, tinnitus Balance: DENIES: vertigo Mouth/Throat: DENIES: change in swallowing, change in voice, hoarsness, painful swallowing, sore throat Cardiovascular Cardiac: DENIES: chest pain, dyspnea on exertion Rhythm/Rate: DENIES: irregular beat, palpitations, tachycardia Vascular: DENIES: pedal edema Pulmonary Respiratory: cough, dyspnea, pneumonia hx, sputum, DENIES: exposure to TB, hyperventilation, last PPD, pleuritic chest pain, recent risky activities, tachypnea GI Upper Abdomen: DENIES: dysphagia, heartburn/indigestion, nausea, pain, vomiting Lower Abdomen: DENIES: blood in stool, constipation, diarrhea, pain General: DENIES: burning, dysuria, frequency, pain, urgency Musculoskeletal General: DENIES: cramps, joint pain, joint swelling, pain, weakness Integumentary Skin: DENIES: rash, sores Neurological General: DENIES: headache, numbness, tingling, vertigo, weakness Physical Exam General General Nourishment: well nourished, well developed, appears stated age, obese Distress Description Patient appears in moderate distress secondary to dyspnea, improved on oxygen and after breathing treatments in route General Body Habitus: disheveled Vitals and Pain First Documented Vital Signs Date Time Temp Pulse Resp B/P Pulse Ox O2 Delivery O2 Flow Rate FiO2 04/18/16 22:21 98.3 97 24 174/78 93 Nasal Cannula 5.00 Weight: Kilograms: 81.800 Height (feet): 5 Height (inches): 9.00 Triage Pain Scale: RN VS reviewed by Provider: Yes Normal Exams: Head: Normocephalic w/o trauma Eyes: Pupils are PERRLA w/ EOMI, No scleral icterus, irritation, or foreign bodies noted ENMT: No facial trauma, nasal exudates, pharyngeal erythema, or exudates are noted ENMT (brief) ENMT Brief: FOUND: mucosa moist, normal dentition, NOT FOUND: nasal erythema, nasal exudate, nasal swelling, pharnyx erythema, tonsillar deviation Neck (brief) Neck: FOUND: trachea midline, NOT FOUND: JVD, adenopathy, spasm, tenderness, thyromegaly Respiratory (brief) Respiratory: FOUND: equal bilaterally, symmetrical, tenderness (mild to moderate left chest wall tenderness), wheezes (tight wheezes bilaterally with coarse breath sounds, no crackles, moderate air movement), NOT FOUND: clear all christian, rales Cardiovascular (brief) Cardiac: FOUND: regular rate, regular rhythm, NOT FOUND: click, gallop, murmur , pedal edema Capillary Refill: <2 sec Pulses: all distal extremities, equal, strong Abdomen (brief) Abdominal Brief: FOUND: bowel normo active x4, soft, NOT FOUND: distended, hepatosplenomegaly, tender Lymphatic (brief) Lymphatic Brief: NOT FOUND: adenopathy, lymphedema Musculoskeletal (brief) Musculoskeletal Brief: NOT FOUND: deformity, loss of motion, spasm, tenderness Integumentary (brief) Integumentary Brief: FOUND: dry, pink, warm Neurologic (brief) Neurological Brief: FOUND: CN w/o gross def to obs, motor-no gross deficits, sensory-no gross deficits Psychiatric (brief) Psychiatric Brief: FOUND: alert, attentive, normal affect, oriented Progress Results/Orders Orders Procedure Category Date Status Time Iv Lock (Ed Only) EDM 04/18/16 Transmitted 22:37 Cbc W/Auto LAB 04/18/16 Complete Diff-Reflex Manual Cmp - Comprehensive LAB 04/18/16 Complete Metabolic Chest, Pa & Lateral RAD 04/18/16 Taken Lactate - Lactic Acid LAB 04/18/16 Complete Procalcitonin LAB 04/18/16 Complete 22:37 Lactate - Lactic Acid LAB 04/19/16 Logged 03:07 Hydromorphone PHA 04/18/16 Complete (Dilaudid) 22:45 Methylprednisolone PHA 04/18/16 Complete Sod Succ (Solu-Medrol 22:45 Albuterol/Ipratropium PHA 04/18/16 Complete (Duoneb) 22:45 Albuterol/Ipratropium PHA 04/19/16 In Process (Duoneb) 00:15 Lab Results Laboratory Tests Test 04/18/16 23:08 White Blood Count 9.3T/MM3 Red Blood Count 4.76M/MM3 Hemoglobin 14.4GM/DL Hematocrit 44.3% Mean Corpuscular Volume 93.1UM3 Mean Corpuscular Hemoglobin 30.3UUG Mean Corpuscular Hemoglobin Concent 32.5GM/DL RDW Standard Deviation 44.6FL Platelet Count 236T/MM3 Mean Platelet Volume 9.9UM3 Immature Granulocyte % (Auto) 0.3% Neutrophils (%) (Auto) 69.5% Lymphocytes (%) (Auto) 22.2% Monocytes (%) (Auto) 6.6% Eosinophils (%) (Auto) 0.9% Basophils (%) (Auto) 0.5% Absolute Immature Granulocyte (auto 0.03T/MM3 Absolute Neutrophils (auto) 6.5T/MM3 Absolute Lymphocytes (auto) 2.1T/MM3 Absolute Monocytes (auto) 0.6T/MM3 Absolute Eosinophils (auto) 0.1T/MM3 Absolute Basophils (auto) 0.1T/MM3 Turbidity < 20 Sodium Level 138MEQ/L Potassium Level 4.7MEQ/L Chloride Level 100MEQ/L Carbon Dioxide Level 30MEQ/L Anion Gap 8MEQ/L Blood Urea Nitrogen 17.0MG/DL Creatinine 0.6MG/DL Glomerular Filtration Rate Calc 99 BUN/Creatinine Ratio 28RATIO Glucose Level 295MG/DL Calculated Osmolality 279MOSM/KG Calcium Level 10.1MG/DL Total Bilirubin 0.40MG/DL Icterus Index < 2 Aspartate Amino Transf (AST/SGOT) 24U/L Alanine Aminotransferase (ALT/SGPT) 33U/L Alkaline Phosphatase 91U/L Total Protein 6.4G/DL Albumin 3.6G/DL Globulin 2.8G/DL Albumin/Globulin Ratio 1.3RATIO Plasma Lactate 1.6MMOL/L Procalcitonin < 0.05NG/ML Chemistry Specimen Hemolysis < 15 Medications Current ED Medications Hydromorphone HCl (Dilaudid) 0.5 mg O ONCE IV Last administered on 04/18/16 22:56; Start 04/18/16 at 22:45; Stop 04/18/16 at 22:46; Status DC Methylprednisolone Sodium Succinate (Solu-Medrol) 125 mg O ONCE IV Last administered on 04/18/16 22:53; Start 04/18/16 at 22:45; Stop 04/18/16 at 22:46 ; Status DC Albuterol/ Ipratropium (Duoneb) 6 ml O ONCE AEROSOL Last administered on 23:00; Start 04/18/16 at 22:45; Stop 04/18/16 at 22:46; Status DC Albuterol/ Ipratropium (Duoneb) 6 ml O ONCE AEROSOL ; Start 04/19/16 at 00:15; Stop 04/19/16 at 00:16 Progress Progress Patient given DuoNeb 2, Solu-Medrol her 25 mg, Dilaudid 0.5 mg - Chest x-ray - unchanged from prior films CBC - normal CMP - normal Lactate - normal Procalcitonin - normal Patient had some improvement after initial therapies, but still having some wheezing and tightness in the lungs. Patient given additional 2 DuoNeb nebs - Case discussed with Dr. Limon, due to the patient's fragile lung health, and failed outpatient treatment after hospitalization, patient will be admitted for observation for COPD exacerbation, and hypoxemia MARTÍN MONTES MD Apr 18, 2016 22:45
[2016-04-18 23:15] LABS: BASOPHILS # (AUTO) 0.1 T/MM3 (0-0.2); BASOPHILS % (AUTO) 0.5 % (0-2); EOSINOPHILS # (AUTO) 0.1 T/MM3 (0-0.5); EOSINOPHILS % (AUTO) 0.9 % (0-4); HCT - HEMATOCRIT 44.3 % (36-46); HGB - HEMOGLOBIN 14.4 GM/DL (12-16); IMMATURE GRANULOCYTE # (AUTO) 0.03 T/MM3 (0.00-0.03); IMMATURE GRANULOCYTE % (AUTO) 0.3 % (0.0-0.5); LYMPHOCYTES # (AUTO) 2.1 T/MM3 (1-4.8); LYMPHOCYTES % (AUTO) 22.2 % (23-45); MEAN CORPUSCULAR HGB 30.3 UUG (26-34); MEAN CORPUSCULAR HGB CONC(MCHC 32.5 GM/DL (31-37); MEAN CORPUSCULAR VOLUME 93.1 UM3 (80-100); MEAN PLATELET VOLUME 9.9 UM3 (9.4-12.4); MONOCYTES # (AUTO) 0.6 T/MM3 (0-0.8); MONOCYTES % (AUTO) 6.6 % (0-9.0); NEUTROPHILS #(AUTO)-ABSOLUTE 6.5 T/MM3 (1.8-7.7); NEUTROPHILS % (AUTO) 69.5 % (33-66); RED BLOOD COUNT 4.76 M/MM3 (4.00-5.20); WBC - WHITE BLOOD COUNT 9.3 T/MM3 (4.5-11.0)
[2016-04-18 23:24] LABS: LACTATE - LACTIC ACID 1.6 MMOL/L (0.6-2.2)
[2016-04-18 23:25] LABS: ALBUMIN 3.6 G/DL (3.5-5.0); ALBUMIN/GLOBULIN RATIO 1.3 RATIO (1.1-2.2); ALKALINE PHOSPHATASE 91 U/L (38-126); ALT (SGPT) 33 U/L (9-52); ANION GAP 8 MEQ/L (5-15); AST (SGOT) 24 U/L (14-36); BUN/CREATININE RATIO 28 RATIO (6-26); CALCIUM 10.1 MG/DL (8.4-10.2); CHLORIDE 100 MEQ/L (98-107); CO2 - CARBON DIOXIDE 30 MEQ/L (22-30); CREATININE 0.6 MG/DL (0.7-1.2); GLOMERULAR FILTRATION RATE 99; GLUCOSE 295 MG/DL (65-110); POTASSIUM 4.7 MEQ/L (3.6-5); SODIUM 138 MEQ/L (134-144); TOTAL PROTEIN 6.4 G/DL (6.3-8.2)
[2016-04-19] VITALS (11 sets, daily range): BP systolic 153–174; BP diastolic 72–88; PULSE 87–92; RESP 16–18; TEMP 96–97.3; O2SAT 92–96; Ht 175.3 cm; Wt 89.4 kg
[2016-04-19] MEDS ORDERED: ALBUTEROL/IPRATROPIUM INHAL. 2.5mg-0.5mg/3ml Neb. AEROSOL ONE (00:15)
[2016-04-19] MEDS ORDERED: ALBUTEROL/IPRATROPIUM INHAL. 2.5mg-0.5mg/3ml Neb. AEROSOL PRN (00:15)
--- OUTSIDE RECORDS SUMMARY | 2016-04-19 00:21 | XMS REPORT | Continuity of Care Document ---
Author Author [facility] Organization [facility] Address Unknown Phone Unavailable Care Team Providers Care Fitness/Wellness Director Name Role Phone JOSE HUGHES MD Primary Care Physician [phone] Insurance Providers Payer Name Policy Number Subscriber Name Relationship Medicarehumana Gold Hmo [id number] Yadira Gramajo 17 Self Advance Directives Directive [...] 1 Tab PO BEDTIME 09/10/12 Active Fish Oil/[place]-3 Fatty Acids 1 Cap PO DAILY 09/11/12 [...] F (96.8 - 99.1) Temperature (Calculated Celsius) 35.77197 degrees C (36.0 - 37.3) Pulse Rate [...] 15, 2013 8:08pm LAB TEST FORM REQUEST [id number] - Atypical/Reactive Lymphocytes May 18, 2008 2:25pm [...] January 12, 2014 10:42am < 2 0-7 SY-Wob-S-Type Natriuretic Peptide January 12, 2014 10:42am 1030 PG/ML H 0-175 Rule in cut points: <50 years old=450; 50-75 years old=900; >75 years old=1800; When utilizing ProBNP rule-in cut points, adjustment for impaired renal function is typically not required. Blood Culture Blood June 25, 2013 12:05am NO GROWTH AFTER 5 DAYS Name: YADIRA GRAMAJO Unit #: [id number] : 1945 Sex: F Loc / Svc: ED DOS: Signed Report #: [id number] DIAGNOSTIC IMAGING REPORT TYPE OF EXAM: CT [...] Encounters Encounter Location Date/Time Departed Emergency Room [facility] 01/12/14 9:30am Recent Diagnosis
--- OUTSIDE RECORDS SUMMARY | 2016-04-19 00:22 | XMS REPORT | Continuity of Care Document ---
Author Author [facility] Organization [facility] Address Unknown Phone Unavailable Care Team Providers Care Reference Librarian Name Role Phone JOSE HUGHES MD Primary Care Physician [phone] Insurance Providers Payer Name Policy Number Subscriber Name Relationship Medicarehumana Gold Hmo [id number] Yadira Gramajo 17 Self Advance Directives Directive [...] 1 Tab PO BEDTIME 09/10/12 Active Fish Oil/[place]-3 Fatty Acids 1 Cap PO DAILY 09/11/12 [...] F (96.8 - 99.1) Temperature (Calculated Celsius) 36.68255 degrees C (36.0 - 37.3) Pulse Rate [...] 7 mm/hr - Sedimentation Rate performed at [facility] Reference Lab, [address] [place] [address], [place], [id number] Installation Coordinator Rah Granados DO Globulin May 14, 2014 [...] 0-9.0 COMMENT RN WILL CALL ON ARRIVAL HX-[place]-Q-Type Natriuretic Peptide January 12, 2014 10:42am 1030 [...] 5 DAYS Name: YADIRA GRAMAJO Unit #: [id number] : 1945 Sex: F Loc / Svc: MANUELA DOS: 05/26/14 Signed Report #: [id number] DIAGNOSTIC IMAGING REPORT TYPE OF EXAM: US ARTERIAL EXTREMITY LOWER LT Dictated By: ADRIA CLARK MD Indication: Ulcer of the left foot and heel. Technique: Grayscale color and duplex Doppler imaging was performed of the arterial tree of the left leg. Findings: LEFT LEG (cm/sec) Common Femoral 175 Superficial Femoral Proximal 177 Mid 156 Distal 175 Popliteal 118 NEFTALI-prox 57.9 [employer]RI[employer] SYSTEMS ADMINISTRATOR-prox 85.4 NEFTALI-dist 57.2 CITRIX SYSTEMS ADMINISTRATOR-dist 51.5 Normal multiphasic waveforms are seen throughout [...] [facility] 05/25/14 12:48pm Registered Clinic [facility] 05/19/14 4:23pm Registered [facility] [...]
--- NOTE | 2016-04-19 01:10 | NUR ---
Admit Pt admitted to room 136 from ED. Pt transferred from cart to bed with assist of two and slide board. Pt tolerated well. Pt and family oriented to room; no questions at this time. Bed in low position, call light within reach, bed alarm activated.
[2016-04-19] MEDS: HYDROCODONE/APAP 5 mg/325 mg TABLET PO PRN ×2 (01:52→22:01)
[2016-04-19] MEDS: ALBUTEROL/IPRATROPIUM INHAL. 2.5mg-0.5mg/3ml Neb. AEROSOL SCH ×4 (07:29→18:41)
--- NOTE | 2016-04-19 08:08 | DI ---
INDICATION: ITS.REASON: dyspnea after rib fractures 2 weeks ago. PROCEDURE: CHEST 2-VIEWS UPRIGHT (PA \T\ LAT) Encounter: Initial COMPARISON: March 08, 2016 FINDINGS: Continued interstitial prominence again noted. There is a new small left pleural effusion. Right lung appears grossly stable and clear. No pneumothorax. Heart size and mediastinal contours are unchanged. Patient reportedly has known left-sided rib fractures which are not well visualized on this exam. Impression: New small left pleural effusion. .
[2016-04-19] MEDS ORDERED: ALPRAZOLAM 0.5 MG TABLET PO PRN (08:45)
--- NOTE | 2016-04-19 13:24 | NUR ---
Status Patient has been sleeping off and on. Poor appetite with meals. Patient became quite emotional after family visited after lunch. PRN Xanax given. Patient has had confusion throughout the day and short term memory is extremely poor. Up with stand by assist to BSC. Bed alarm in use for patient safety. Call light within reach.
[2016-04-19] MEDS: LEVOFLOXACIN 500 mg IVPB 500 MG in D5W 100 ML IV SCH (14:05)
--- NOTE | 2016-04-19 15:47 | HPF ---
DATE 04/19/2016 CHIEF COMPLAINT Difficulty breathing. HISTORY OF PRESENT ILLNESS Patient is a 70-year-old female well-known to me. She presented to [facility] ER yesterday night/early this morning with the chief complaint of difficulty breathing. I received a phone call from her daughter late last night that her mom was having significant trouble breathing, therefore they summoned EMS who came by the house. Patient required about 10 liters of oxygen by nonrebreather face mask. The patient had just been dismissed from [facility] the day before yesterday after she had been there for nine days for management of several broken ribs on the left. About few hours after she got home the day before yesterday, she was having significant shortness of breath. In the emergency room, patient was noted to be hypoxic and was given some breathing treatments. O2 saturation improved to 5 liters or so. I recommended the patient be admitted to [facility] and be reevaluated by myself later to see what we can do to help her breathe better. Chest x-ray shows mild pleural effusion, no obvious evidence of pneumonia. PAST MEDICAL HISTORY 1. Chronic obstructive pulmonary disease. 2. Pneumonia. 3. Congestive heart failure. 4. Diabetes mellitus needing insulin. 5. Dyslipidemia. 6. Hypertension. 7. Diabetic neuropathy. 8. Gastroesophageal reflux disease. 9. Depression. ALLERGIES MINOCYCLINE, PENICILLIN, SULFA. PAST SURGICAL HISTORY 1. Hysterectomy. 2. Appendectomy. FAMILY HISTORY Positive for cancer. SOCIAL HISTORY Patient is with children. She smokes. REVIEW OF SYSTEMS Denies any symptoms of urinary tract infection, no symptoms of stroke, just the dyspnea and having difficulty breathing. LABORATORY/RADIOLOGY CBC and CMP were normal. Chest x-ray read by radiology as a new small left pleural effusion. PHYSICAL EXAMINATION VITAL SIGNS: This morning, blood pressure 173/88, with a pulse of 88, respirations 16, O2 sat 95% on 5 liters of oxygen by nasal cannula. She is very dyspnea. NECK: Supple. LUNGS: Diffuse rhonchi and rales throughout. CARDIOVASCULAR: Regular rate and rhythm. ABDOMEN: Soft. EXTREMITIES: No significant edema. NEURO EXAM: Grossly intact. ASSESSMENT 1. Acute respiratory distress. 2. Chronic respiratory failure requiring oxygen dependency. 3. Chronic obstructive pulmonary disease with mild to moderate exacerbation. 4. Type 2 diabetes, needing insulin, poorly controlled. 5. Hypertension by history. 6. Diabetic neuropathy, chronic. PLAN Admit patient to [facility], IV Solu-Medrol, breathing treatments, and empiric IV antibiotics will be initiated as well. MTDD
[2016-04-19] MEDS ORDERED: MethylPREDNISolone SOD SUCC 40mg/1ml IM SCH (17:00)
--- NOTE | 2016-04-19 18:00 | NUR ---
CM SPOKE WITH PT; SHE WAS ASLEEP, BARELY WOKE UP TO THIS WORKER (RN AWARE AND STATED SHE RECENTLY RECEIVED MEDICATION). THIS WORKER PROVIDED CONTACT INFO, ASKED TO CALL HER DAUGHTER, AND SHE SAID OK. CALLED DAUGHTER LUCY. LUCY STATED PT LIVES ALONE, BUT SHE THINKS PT NEEDS A SNU. SHE SAID PT HAS BEEN RESISTIVE OF THIS, THOUGH. SHE SAID PT FELL, RECENTLY WAS RELEASED FROM [facility]. SHE SAID SHE CHECKS ON PT AT HOME, AND PROVIDE FOOD. SHE SAID SHE HAS BEEN TALKING WITH [facility] (ELVIS), AND WAS TOLD A SNU STAY WOULD BE COVERED, AT [facility]. THIS WORKER EXPLAINED [facility] CAN BE CONTACTED, BUT PT WOULD NEED TO BE AGREEABLE TO SNU AND INSURANCE WOULD NEED TO AUTH IT. SHE STATED SHE UNDERSTOOD. Addendum: 04/19/16 at 1810 by KELBY CARVAJAL Amended: Links added.
--- NOTE | 2016-04-19 18:08 | NUR ---
SHIFT ASSUMED CARE AT 1500. PT IS A&OX3, UP WITH 1 ASSIST, MODERATE FALL, RBK AMPUTEE. PT HAS BEEN RESTING MOST OF MY CARE. PT DENIES PAIN, N/V AND SOA. TP IS ON 5L AT THIS TIME. ATTEMPTED TO WAKE PATIENT FOR SUPPER, PT CONTINUED TO SNORE, WILL LET PT SLEEP A BIT LONGER. NO OTHER CHANGES, ALARMS IN USE AND CALL LIGHT WITH IN REACH.
[2016-04-19] MEDS: INSULIN LISPRO 100 UNIT/ML SQ SCH (18:19)
[2016-04-19] MEDS: MethylPREDNISolone SOD SUCC 40mg/1ml IV SCH (18:23)
[2016-04-19] MEDS: INSULIN GLARGINE 100 UNIT/ML SQ SCH (21:59)
[2016-04-19] MEDS: LABETALOL 100 MG TABLET PO SCH (22:00)
[2016-04-19] MEDS: MAGNESIUM OXIDE 400 MG TABLET PO SCH (22:00)
[2016-04-19] MEDS: DULOXETINE 30 MG CAPSULE PO SCH (22:00)
[2016-04-19] MEDS: SIMVASTATIN 20 MG TABLET PO SCH (22:00)
[2016-04-20] VITALS (8 sets, daily range): BP systolic 149–176; BP diastolic 70–82; PULSE 79–98; RESP 18–20; TEMP 96–96.7; O2SAT 84–96
[2016-04-20] MEDS: HYDROCODONE/APAP 5 mg/325 mg TABLET PO PRN ×4 (01:44→19:35)
[2016-04-20] MEDS: MethylPREDNISolone SOD SUCC 40mg/1ml IV SCH ×3 (01:44→17:33)
--- NOTE | 2016-04-20 06:30 | NUR ---
Shift Summary: Pt has rested off and on throughout the night. Pt is up to bedside commode with 1 assist. Pt has had adequate urinary output. Pt remains on 4L of O2. Pt has productive cough. Pt is IVL. Pt c/o pain and given PRN Pain meds as charted for c/o pain to rib area. Pt resting in bed at this time with call light within reach. Will continue to monitor.
[2016-04-20] MEDS: ALBUTEROL/IPRATROPIUM INHAL. 2.5mg-0.5mg/3ml Neb. AEROSOL SCH ×4 (06:58→18:52)
[2016-04-20] MEDS ORDERED: POTASSIUM CL. 10mEq CAP PO SCH ×2 (08:00)
[2016-04-20] MEDS: DULOXETINE 20 MG CAPSULE PO SCH (08:37)
[2016-04-20] MEDS: LABETALOL 100 MG TABLET PO SCH ×2 (08:37→22:16)
[2016-04-20] MEDS: MAGNESIUM OXIDE 400 MG TABLET PO SCH ×2 (08:37→22:16)
[2016-04-20] MEDS: INSULIN LISPRO 100 UNIT/ML SQ SCH ×3 (08:37→17:33)
--- NOTE | 2016-04-20 09:08 | NUR ---
CM MESSAGE FROM [facility] WITH [facility]; SHE SAID THEY ARE FULL FOR BOTH SNU AND NURSING HOME CARE. SHE IS NOT SURE WHEN THEY WOULD HAVE OPENINGS.
--- NOTE | 2016-04-20 10:57 | NUR ---
PAIN 1 NORCO GIVEN FOR RIB PAIN 12/12, PT REQUESTED 2 PAIN PILLS BUT IT IS TOO EARLY FOR 2.
--- NOTE | 2016-04-20 11:29 | NUR ---
RAMONA CM IN TO VISIT WITH PT. SHE IS ALERT AND ORIENTED. HER DAUGHTER, LUCY, IS ON SPEAKER PHONE. PT AND DAUGHTER ARE MADE AWARE THAT PM IS FULL. THEY REPORT THAT ELVIS FROM [facility] HAD LED THEM TO BELIEVE THAT SHE WOULD HAVE SNF ROOM AVAILABLE FOR PT AT PM AT TIME OF DC. THEY ARE GIVEN LIST OF [facility] SNF PROVIDERS. THEY GIVE PERMISSION FOR CM TO MAKE REFERRAL TO [facility]. THEY DO NOT WANT TO GO INTO [place]. RAMONA SPOKE WITH [facility] AT PM AND LET HER KNOW THAT HER FACILITY IS STILL PT FIRST CHOICE. SHE WILL LET CM KNOW IF ANY BEDS OPEN UP OVER THE WEEKEND. VM IS LEFT FOR [place] AT [facility] AND PORTAL IS OPENED FOR BOTH FACILITIES.
[2016-04-20] MEDS: LEVOFLOXACIN 500 mg IVPB 500 MG in D5W 100 ML IV SCH (13:52)
--- NOTE | 2016-04-20 15:24 | NUR ---
DM Screen Diet Order: 2000 calorie consistent carb diet Based on [facility] with 1.3 activity factor and 1.0 injury factor caloric needs ~ 1967 to maintain current weight. Pt is known to RD from previous hospitalizations and is familiar with a consistent carb diet. Pt states she would like cottage cheese and pineapple with each lunch and dinner. FANS notified. RD available at ext [phone]
--- NOTE | 2016-04-20 17:08 | PNF ---
DATE 04/20/2016 SUBJECTIVE Patient says she is doing better. She complained of left shoulder pain and is wondering if she has a fracture since she has been falling. She fell not too long ago. She has no other complaints. PHYSICAL EXAM VITAL SIGNS: Blood pressure 172/81, pulse 79, respiratory rate 20, temperature 96.0, saturation 96% on 4 L/nasal cannula. GENERAL: The patient looks comfortable, in no acute distress ASSESSMENT Acute respiratory distress. Hypoxia. Chronic respiratory failure requiring oxygen. COPD with mild exacerbation. Type 2 diabetes mellitus, poorly controlled. Hypertension by history. Diabetic neuropathy. Generalized weakness. GERD. PLAN Obtain X-ray of the left shoulder. Continue IV antibiotics and breathing treatments. Continue to wean patient down some more on oxygen. MTDD
--- NOTE | 2016-04-20 18:57 | NUR ---
STATUS PT IS A&OX3. PT UP WITH 1 ASSIST TO PIVOT TO BSC AND CHAIR. PT IS ON 4L/NC, SOA IMPROVING. PT HAD A BM TODAY. CALLS FOR NEEDS.
[2016-04-20] MEDS: INSULIN GLARGINE 100 UNIT/ML SQ SCH (22:14)
[2016-04-20] MEDS: DULOXETINE 30 MG CAPSULE PO SCH (22:15)
[2016-04-20] MEDS: SIMVASTATIN 20 MG TABLET PO SCH (22:16)
[2016-04-21] VITALS (10 sets, daily range): BP systolic 105–163; BP diastolic 71–89; PULSE 72–74; RESP 18–22; TEMP 96.9–97.6; O2SAT 90–96
[2016-04-21] MEDS: MethylPREDNISolone SOD SUCC 40mg/1ml IV SCH ×3 (01:26→17:28)
[2016-04-21] MEDS: HYDROCODONE/APAP 5 mg/325 mg TABLET PO PRN ×3 (03:06→21:42)
--- NOTE | 2016-04-21 06:00 | NUR ---
Shift Summary: Pt has rested well during the night. Pt did wake up early this am and c/o severe pain in her left upper abdominal/rib area. Pt only requested 1 PRN [place]. Pt encouraged to take 2 [place] PRN Pills due to increase in pain but Pt states she doesn't want to get "hooked." Pt educated regarding pain control. Pt verbalizes understanding but wants to start with 1 PRN [place]. Pt rested well afterwards and states this am that the one pain pill "was enough." Pt remains on 4L of O2. Pt is a&o. Pt is pleasant and is up with 1 assist to BSC. Good urinary output. Will continue to monitor.
[2016-04-21] MEDS: ALBUTEROL/IPRATROPIUM INHAL. 2.5mg-0.5mg/3ml Neb. AEROSOL SCH ×4 (07:11→22:04)
[2016-04-21] MEDS: DULOXETINE 20 MG CAPSULE PO SCH (08:18)
[2016-04-21] MEDS: LABETALOL 100 MG TABLET PO SCH ×2 (08:18→21:23)
[2016-04-21] MEDS: MAGNESIUM OXIDE 400 MG TABLET PO SCH ×2 (08:18→21:23)
[2016-04-21] MEDS: INSULIN LISPRO 100 UNIT/ML SQ SCH ×3 (08:19→17:28)
--- NOTE | 2016-04-21 08:48 | DI ---
Indication: ITS.REASON: recent fall, left shoulder pain. PROCEDURE: SHOULDER BILATERAL 2-3 VIEWS: Encounter: Initial Comparison: None Findings: Right shoulder: There is no acute fracture, dislocation or malalignment identified. Left shoulder: Mildly displaced fractures of the left third through sixth posterior lateral ribs. No acute fractures seen in the shoulder. No dislocation. Impression: Right shoulder: No acute osseous abnormality. Left shoulder: Left rib fractures. .
--- NOTE | 2016-04-21 10:21 | NUR ---
RAMONA GREENE VISITED PT. CM EXPLAINED ROLE AND PROVIDED CONTACT INFORMATION. PT IS AWARE THAT PM IS FULL AND THAT CM HAS REACHED OUT TO [facility] AND THEY HAVE ACCEPTED PT PENDING INSURANCE APPROVAL. RAMONA SPOKE WITH DR HUGHES REGARDING D/C PLAN. DR HUGHES WILL REVIEW PT STATUS AND FOLLOW UP WITH CM. PT IS AWARE TO CONTACT CM IF NEEDS ARISE.
[2016-04-21] MEDS: LEVOFLOXACIN 500 mg IVPB 500 MG in D5W 100 ML IV SCH (13:01)
--- NOTE | 2016-04-21 14:04 | NUR ---
CM CM SPOKE WITH DR HUGHES AND [place] [facility] [place] ANTICIPATED D/C IS FOR SUNDAY TO [facility]. PT IS AWARE TO CONTACT CM IF NEEDS ARISE.
--- NOTE | 2016-04-21 16:35 | NUR ---
Student charting reviewed by [facility] cyber security instructor.
--- NOTE | 2016-04-21 18:57 | NUR ---
STATUS PT IS A&OX3. PT AMBULATED WITH P.T. TODAY. O2 WEANED TO 2.5L/NC. PT REPORTS SOA IS IMPROVING. PT WAS UP TO THE CHAIR TODAY. PRN NORCO WAS GIVEN ONCE THIS SHIFT. CALLS FOR NEEDS.
--- NOTE | 2016-04-21 19:20 | PNF ---
DATE 04/21/2016 SUBJECTIVE Patient says she feels better. She walked about 150 feet today. No significant discomfort. Able to wean down some more on oxygen requirement. PHYSICAL EXAM VITAL SIGNS: Blood pressure 163/89, pulse 72, respirations 22. Oxygen saturation 92% on 2.5 L/nasal cannula. GENERAL: The patient looks comfortable. She is less dyspneic. NECK: Supple. CHEST: Lungs are clearing. CARDIOVASCULAR: Regular rate and rhythm. ABDOMEN: Soft. EXTREMITIES: No significant changes. LABORATORY Blood sugar running between 215-279 over the last four hours. ASSESSMENT 1. Acute respiratory distress with significant hypoxia - much improved. 2. COPD with [id number] exacerbation - improving. 3. Chronic respiratory failure requiring oxygen. The patient's baseline O2 requirement is about 3-4 liters. 4. Hypertension. Blood pressure is overall well controlled. 5. Type 2 diabetes mellitus, needing insulin - poorly controlled. 6. Diabetic neuropathy which is chronic. 7. Acute generalized weakness which is probably multifactorial - improving. 8. GERD - appears to be stable. 9. Left shoulder pain. X-ray of the left shoulder did not show any fracture. PLAN Continue IV antibiotics as well as breathing treatments and IV Solu-Medrol. Continue to titrate patient's oxygen requirement. The patient will be dismissed to [facility] on Sunday. Dr. Ybarra is on-call for the group this weekend starting tonight until Sunday morning at 6 o'clock. [facility]
[2016-04-21] MEDS: SIMVASTATIN 20 MG TABLET PO SCH (21:23)
[2016-04-21] MEDS: DULOXETINE 30 MG CAPSULE PO SCH (21:24)
[2016-04-21] MEDS: INSULIN GLARGINE 100 UNIT/ML SQ SCH (21:42)
[2016-04-22] VITALS (12 sets, daily range): BP systolic 151–187; BP diastolic 68–95; PULSE 61–80; RESP 12–22; TEMP 96.6–98.2; O2SAT 90–94
[2016-04-22] MEDS: MethylPREDNISolone SOD SUCC 40mg/1ml IV SCH ×3 (01:59→18:05)
--- NOTE | 2016-04-22 03:57 | NUR ---
STATUS PT ALERT ANS ORIENTED X3. REPORTED PAIN 5/10, PRN PAIN MEDICATION GIVEN ORDERED. ASSIST X1 TO BEDSIDE COMMODE. PT SLEPT WELL. WILL CONTINUE TO MONITOR.
[2016-04-22] MEDS: INSULIN LISPRO 100 UNIT/ML SQ PRN ×3 (06:51→21:34)
--- NOTE | 2016-04-22 07:28 | PNPDOC ---
Subjective Date DATE: 04/22/16 TIME: 07:22 Subjective Patient doing ok today, says she is tired. 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 Assessment & Plan Problems: (1) Hypoxia Status: Chronic Assessment & Plan: 04/22 Seems to be back to where she was after the fall with oxygen requirement. (2) Hypertension Status: Chronic (3) DM type 2 (diabetes mellitus, type 2) Status: Chronic Assessment & Plan: 04/22 Will monitor blood sugars since on steroids. (4) COPD exacerbation Status: Acute (5) Ribs, multiple fractures Status: Acute Assessment & Plan: 04/22 Still having some pain. Plan to go to [facility] on Sunday. Code Status Full Code Hospital Course Summary Disclaimer The hospital course summary below is not to be considered part of the above Progress Note. JOSELUIS STORY DO Apr 22, 2016 07:27
[2016-04-22] MEDS: ALBUTEROL/IPRATROPIUM INHAL. 2.5mg-0.5mg/3ml Neb. AEROSOL SCH ×4 (08:07→19:38)
--- NOTE | 2016-04-22 09:15 | NUR ---
Pt AO x3 and able to voice needs and concerns. VSS. Denies pain, distress or discomfort this am.Pt up eating breakfast, self feed. Tolerated well. Remains 2.5L NC to keep oxygen sats above 91%. Continue to monitor.
[2016-04-22] MEDS: INSULIN LISPRO 100 UNIT/ML SQ SCH ×3 (09:41→18:05)
[2016-04-22] MEDS: DULOXETINE 20 MG CAPSULE PO SCH (09:42)
[2016-04-22] MEDS: MAGNESIUM OXIDE 400 MG TABLET PO SCH ×2 (09:42→20:47)
[2016-04-22] MEDS: LABETALOL 100 MG TABLET PO SCH ×2 (09:43→20:48)
[2016-04-22] MEDS: LEVOFLOXACIN 500 mg IVPB 500 MG in D5W 100 ML IV SCH (13:11)
[2016-04-22] MEDS: PREGABALIN 50 MG CAPSULE PO PRN ×2 (15:03→20:48)
[2016-04-22] MEDS: SIMVASTATIN 20 MG TABLET PO SCH (20:47)
[2016-04-22] MEDS: DULOXETINE 30 MG CAPSULE PO SCH (20:48)
[2016-04-22] MEDS: INSULIN GLARGINE 100 UNIT/ML SQ SCH (20:48)
[2016-04-23] MEDS: MethylPREDNISolone SOD SUCC 40mg/1ml IV SCH ×3 (00:52→17:02)
--- NOTE | 2016-04-23 04:11 | NUR ---
PT ALERT AND ORIENTED THIS SHIFT. REPORTS PAIN 5/10 BUT DENIES THE NEED FOR PAIN MEDICATION. PT REMINDED THAT LETTING PAIN GET OUT OF CONTROL COULD MAKE IT VERY DIFFICULT TO RELIEVE IT, PT SAYS SHE IS AWARE. ONE PERSON ASSIST TO THE BEDSIDE COMMODE. IV LOCK IN THE LEFT HAND. LEFT BTK AMPUTEE. O2 AT 2.5L. DENIES SOA, CHEST PAIN. WILL CONTINUE TO MONITOR.
[2016-04-23] MEDS: INSULIN LISPRO 100 UNIT/ML SQ PRN ×2 (06:33→21:55)
[2016-04-23 07:30] VITALS: O2SAT 96
[2016-04-23 07:35] VITALS: BP 166/82; PULSE 69; RESP 17; TEMP 96.3; O2SAT 93
[2016-04-23] MEDS: ALBUTEROL/IPRATROPIUM INHAL. 2.5mg-0.5mg/3ml Neb. AEROSOL SCH ×4 (07:38→19:05)
[2016-04-23] MEDS: INSULIN LISPRO 100 UNIT/ML SQ SCH ×3 (08:00→17:02)
--- NOTE | 2016-04-23 08:53 | NUR ---
Report obtained and care assumed pt A/OX3 able to verbalize needs appropriately denies pain/ discomfort this morning resting well and call light within pt reach. will continue to monitor.
[2016-04-23] MEDS: LABETALOL 100 MG TABLET PO SCH ×2 (09:04→21:12)
[2016-04-23] MEDS: DULOXETINE 20 MG CAPSULE PO SCH (09:04)
[2016-04-23] MEDS: MAGNESIUM OXIDE 400 MG TABLET PO SCH ×2 (09:05→21:13)
[2016-04-23] MEDS: PREGABALIN 50 MG CAPSULE PO PRN ×2 (09:08→21:14)
--- NOTE | 2016-04-23 10:15 | PNPDOC ---
Subjective Date DATE: 04/23/16 TIME: 10:11 Subjective Patient feeling better today. Wondering if she really needs to go to [facility]. Walked 174 steps with PT yesterday and they PT thought she was doing much better than he thought she would. Objective Vital Signs Vital signs Vital Signs Date Time Temp Pulse Resp B/P Pulse Ox O2 Delivery O2 Flow Rate FiO2 04/23/16 07:43 56 04/23/16 07:35 96.3 17 166/82 93 Nasal Cannula 2.00 Height (Feet): 5 Height (Inches): 9.00 Weight (Kilograms): 88.400 General General Appearance: Alert, Orientated x 3 Respiratory (Brief) Respiratory: FOUND: clear all christian, equal bilaterally Cardiovascular (Brief) Cardiac: FOUND: regular rate, regular rhythm Extremities (Brief) Extremity : Comments has below knee amputation R leg Assessment & Plan Problems: (1) Hypoxia Status: Chronic Assessment & Plan: 04/22 Seems to be back to where she was after the fall with oxygen requirement. 04/23 Continue with O2. (2) Hypertension Status: Chronic Assessment & Plan: Will add some amlodipine 2.5mg 1 po qd since BP still elevated. (3) DM type 2 (diabetes mellitus, type 2) Status: Chronic Assessment & Plan: 04/22 Will monitor blood sugars since on steroids. 04/23 Will increase Lantus and Humalog by 1 unit to see if can control BS better. (4) COPD exacerbation Status: Acute Assessment & Plan: 04/23 Seems improved. (5) Ribs, multiple fractures Status: Acute Assessment & Plan: 04/22 Still having some pain. Plan to go to [facility] on Sunday. 04/23 Still in pain at times but improved. Not sure if she wants to go to [facility] or not. Will have her talk to social services designee and Dr. Limon tomorrow. Code Status Full Code Hospital Course Summary Disclaimer The hospital course summary below is not to be considered part of the above Progress Note. JOSELUIS STORY DO Apr 23, 2016 10:15
[2016-04-23 12:00] VITALS: O2SAT 94
[2016-04-23] MEDS: LEVOFLOXACIN 500 mg IVPB 500 MG in D5W 100 ML IV SCH (12:56)
[2016-04-23 15:00] VITALS: O2SAT 94
--- NOTE | 2016-04-23 15:10 | NUR ---
shift summary resting comfortable watching Television pt voices no concern A/O without ant distress pt in a pleasant mood. will continue to monitor
--- NOTE | 2016-04-23 15:31 | NUR ---
Assisted pt to BSC with x1 assist transfers well pt voids without difficulty voices concern about discharging tomorrow and would like to speak with medical case manager will pass it on. call light within pt reach et
[2016-04-23 15:32] VITALS: BP 162/86; PULSE 84; RESP 16; TEMP 97.7; O2SAT 93
--- NOTE | 2016-04-23 17:48 | NUR ---
No changes in assessment this evening pt seated on the edge of bed eating dinner medication given per mayda et emeterio pain discomfort call light withing reach no distress et will continue to monitor.
[2016-04-23 19:02] VITALS: O2SAT 93
[2016-04-23] MEDS: SIMVASTATIN 20 MG TABLET PO SCH (21:13)
[2016-04-23] MEDS: DULOXETINE 30 MG CAPSULE PO SCH (21:13)
[2016-04-23] MEDS ORDERED: INSULIN GLARGINE 100 UNIT/ML SQ SCH (22:00)
[2016-04-24 00:18] VITALS: BP 142/67; PULSE 94; RESP 18; TEMP 97.1; O2SAT 94
[2016-04-24] MEDS: MethylPREDNISolone SOD SUCC 40mg/1ml IV SCH ×2 (01:19→09:00)
[2016-04-24] MEDS: INSULIN LISPRO 100 UNIT/ML SQ PRN (06:24)
--- NOTE | 2016-04-24 06:26 | NUR ---
SUMMARY PT A&O X3. SHE WAS GIVEN LYRICA X1 AT HS FOR PAIN PER PT REQUEST. PT HAS BEEN UP SEVERAL TIMES 1 PERSON ASSIST TO THE COMMODE. GAIT UNSTEADY. PT WAS EDUCATED CLAIMS INVESTIGATOR LIGHT USE AND SAFETY. WILL CONTINUE TO MONITOR.
[2016-04-24] MEDS: ALBUTEROL/IPRATROPIUM INHAL. 2.5mg-0.5mg/3ml Neb. AEROSOL SCH ×2 (07:47→10:56)
[2016-04-24 07:48] VITALS: O2SAT 93
[2016-04-24 08:14] VITALS: PULSE 68; RESP 18
[2016-04-24 08:21] VITALS: BP 165/85; PULSE 68; RESP 14; TEMP 98.6; O2SAT 93
[2016-04-24] MEDS: DULOXETINE 20 MG CAPSULE PO SCH (08:58)
[2016-04-24] MEDS: LABETALOL 100 MG TABLET PO SCH (08:58)
[2016-04-24] MEDS: INSULIN LISPRO 100 UNIT/ML SQ SCH ×2 (08:58→11:24)
[2016-04-24] MEDS: MAGNESIUM OXIDE 400 MG TABLET PO SCH (08:58)
[2016-04-24] MEDS: PREGABALIN 50 MG CAPSULE PO PRN (08:58)
[2016-04-24] MEDS ORDERED: AMLODIPINE 2.5 MG TABLET PO SCH (09:00)
--- NOTE | 2016-04-24 09:01 | PDOCECFAO ---
Admission Orders Admission Orders Allergies: Coded Allergies: minocycline (Verified Allergy, Intermediate, HIVES, 04/19/16) Penicillins (Verified Allergy, Unknown, 04/19/16) Sulfa (Sulfonamide Antibiotics) (Verified Allergy, Unknown, 04/19/16) Admitting Diagnosis Copd Exacerbation Admitting Physician Jose Hughes MD Code Status Full Code Anticipated LOS: 30 days or less Rehab Potential: Good Rehab Prognosis: Good Diet: Regular (1800 ADA diet) Wound/Incision Care: as per facility protocol May use Facility Protocol /SO: Yes Evaluations/Treat: PT, OT Alf Certification I certify that SNF services are required to be given on an Inpatient basis because of the patients need for fci care on a continuing basis for the condition(s) for which he/she received inpatient hospital services prior to his/her transfer to the SNF. SNF inpatient care is necessary for the following reasons C/P Assessment/Care, Med Admininistration JOSE HUGHES MD Apr 24, 2016 09:01
[2016-04-24 10:00] LABS: HGB - HEMOGLOBIN 16.8 GM/DL (12-16); MEAN CORPUSCULAR HGB 30.7 UUG (26-34); MEAN CORPUSCULAR HGB CONC(MCHC 34.3 GM/DL (31-37); MEAN CORPUSCULAR VOLUME 89.6 UM3 (80-100); MEAN PLATELET VOLUME 10.6 UM3 (9.4-12.4); RED BLOOD COUNT 5.47 M/MM3 (4.00-5.20); WBC - WHITE BLOOD COUNT 14.7 T/MM3 (4.5-11.0)
[2016-04-24 10:10] LABS: ANION GAP 8 MEQ/L (5-15); BUN/CREATININE RATIO 40 RATIO (6-26); CALCIUM 9.5 MG/DL (8.4-10.2); CHLORIDE 97 MEQ/L (98-107); CO2 - CARBON DIOXIDE 29 MEQ/L (22-30); CREATININE 0.8 MG/DL (0.7-1.2); GLOMERULAR FILTRATION RATE 71; GLUCOSE 306 MG/DL (65-110); POTASSIUM 4.5 MEQ/L (3.6-5); SODIUM 134 MEQ/L (134-144)
[2016-04-24 10:23] LABS: BAND NEUTROPHILS # 0.1 T/MM3; MONOCYTES # (MANUAL) 0.3 T/MM3 (0-0.8); NEUTROPHILS #(MANUAL)-ABSOLUTE 14.3 T/MM3 (1.8-7.7); TOTAL CELLS COUNTED 100 %
--- NOTE | 2016-04-24 10:39 | NUR ---
CM PT HAS BEEN D/C TO [facility] TODAY. PT DAUGHTER LUCY IS A AWARE AND WILL TRANSPORT TO [facility]. [facility] IS AWARE THAT LUCY WILL TRANSPORT AND ESTIMATED POLE CLIMBER TIME FROM [facility] IS 11:30AM-1200PM. [facility] NURSE IS AWARE. LUCY AWARE TO CONTACT CM IF NEEDS ARISE.
--- NOTE | 2016-04-24 10:43 | NUR ---
CM D/C TIME OUT IS COMPLETE ALL ORDERS HAVE BEEN SENT TO POST ACUTE CARE SETTING. CHENTE FROM [facility] AWARE TO CONTACT CM IF NEEDS ARISE.
--- NOTE | 2016-04-24 12:30 | NUR ---
DISCHARGE PT DISCHARGED TO [facility] IN GOOD CONDITION. DISCHARGE INSTRUCTIONS REVIEWED AND PT VERBALIZED UNDERSTANDING. PACKET GIVEN TO PT TO GIVE TO [facility]. PT WHEELED TO ED ENTRANCE ACCOMPANIED BY NURSING STAFF. DAUGHTER DROVE PT TO [facility].
--- NOTE | 2016-05-26 13:22 | DSF ---
FINAL DIAGNOSES 1. Hypoxia. 2. Obesity. 3. COPD exacerbation. 4. Recent multiple rib fractures. 5. Hypertension. 6. Type 2 diabetes mellitus needing insulin. REASON FOR ADMISSION Patient is a 70-year-old female admitted to [facility] with chief complaint of shortness of breath and increased oxygen use. The patient was seen by EMS and required about 10 liters by nonrebreather face mask. In the emergency room patient improved, requiring 5 liters of oxygen. PHYSICAL EXAMINATION VITAL SIGNS: Blood pressure 173/88. LUNGS: Diffuse rhonchi and rales throughout. HOSPITAL COURSE The patient was admitted to the general medical floor under the care of Dr. Jordy Limon. The patient received broad-spectrum IV antibiotics as well as IV Lasix for the remainder of the hospitalization. She is medically stable enough to be dismissed to jail - she needs endurance and strength training at the jail with the physical therapy program there as well as medication management. She was dismissed to jail on 04/24/2016. DISCHARGE MEDICATIONS 1. Ventolin inhaler two puffs b.i.d. p.r.n. 2. Cinnamon 500 mg one tablet daily. 3. Cymbalta 30 mg one tablet at bedtime. 4. Cymbalta 20 mg one tablet daily. 5. Lasix 40 mg p.r.n. 6. Lantus 30 units subcutaneously q.h.s. 7. Humalog 20 units subcutaneously t.i.d. with meals. 8. Labetalol 100 mg one tablet p.o. b.i.d. 9. Magnesium 1200 mg q.a.m. 10. Magnesium oxide 400 mg two tablets at bedtime. 11. Multivitamin one tablet daily. 12. Potassium chloride 10 mEq q.a.m. 13. Potassium 10 mEq q.o.d. 14. Lyrica 50 mg one capsule t.i.d. p.r.n. 15. Simvastatin 40 mg one tablet daily. 16. Zinc - unknown dose. DIET 1800-calorie ADA diet. FOLLOWUP The patient needs to follow up with Dr. Jordy Limon in seven to ten days. MTDD
== END 2016-04-24 12:20 | DRG 191 ==
LOC: ED 22:01 → EDHOLD 04-19 00:10 → MED 04-19 01:10 → OBSVTOIN 04-19 14:27
PROVIDERS: ADMIT Family Medicine; ATTEND Family Medicine
DX: J44.1 Chronic obstructive pulmonary disease with (acute) exacerbation (principal); J96.11 Chronic respiratory failure with hypoxia; E11.40 Type 2 diabetes mellitus with diabetic neuropathy, unspecified; I10 Essential (primary) hypertension; E78.00 Pure hypercholesterolemia, unspecified; F17.210 Nicotine dependence, cigarettes, uncomplicated; E11.65 Type 2 diabetes mellitus with hyperglycemia; K21.9 Gastro-esophageal reflux disease without esophagitis; M25.512 Pain in left shoulder; E66.9 Obesity, unspecified; Z79.4 Long term (current) use of insulin; Z99.81 Dependence on supplemental oxygen; Z68.26 Body mass index [BMI] 26.0-26.9, adult
CPT/HCPCS: 36000; 36415; 80048; 80053; 82948; 83605; 84145; 85025; 94640; 94760; 96374; 96375

== ENCOUNTER → 2016-06-30 | Outpatient (CLI) | payer MEDICARE ==
[~2016-06-30] MED LIST changes: -BENZ-16 PO; -BENZ100C97 PO; -LEVO500T63 PO; -PRED10TA PO
== END ==
LOC: LABN.NHH 14:05
PROVIDERS: ATTEND Family Medicine
DX: E11.42 Type 2 diabetes mellitus with diabetic polyneuropathy (principal); I50.33 Acute on chronic diastolic (congestive) heart failure
CPT/HCPCS: 83735

== ENCOUNTER 2017-05-13 13:54 | Inpatient (IN) ==
--- NOTE | 2017-05-13 14:15 | Emergency Department Report ---
General Adult HPI - General Chief complaint: Shortness of Breath/Dyspnea Stated complaint: soa,diff breathing Time Seen by Provider: 05/13/17 14:10 Source: patient, family, EMS Mode of arrival: EMS Limitations: no limitations - History of Present Illness HPI narrative: 71-year-old female presents to the emergency department with the chief complaint of a COPD exacerbation. Patient noted onset of symptoms yesterday evening. She has noted increased wheezing and coughing. Cough is currently nonproductive. She denies any pain or discomfort. She uses 3 L by nasal cannula home O2 at all times. She was given Solu-Medrol 125 mg IV 1 and a DuoNeb treatment by EMS prior to arrival to the emergency department today. She was at home when her symptoms began. Symptoms have improved in nature since onset. No other complaints or associated symptoms. Typical COPD exacerbation for the patient. - Related Data Home Medications Medication Instructions Recorded Confirmed Pregabalin Cap [Lyrica] 50 mg PO TID PRN #0 09/29/14 03/21/17 Vitamin D3 (cholecalciferol) 1,000 1,000 unit PO QAM cap 12/01/16 05/13/17 unit capsule Lantus Solostar (insulin glargine) 16 unit SQ BID ml 02/09/17 03/21/17 100 unit/mL (3 mL) PEN Hydrocodone/APAP 5/325 [[place] 1 tab PO PRN PRN 03/21/17 03/21/17 5/325] Magnesium Oxide [Magnesium] 4 tab PO BID 03/21/17 05/13/17 Albuterol/Ipratropium [Duoneb] 3 ml INH PRN PRN 05/13/17 05/13/17 Multivit,Calc,Mins/Iron/Folic 1 each PO DAILY 05/13/17 05/13/17 [One-A-Day Women's Tablet] Potassium Chloride 1 tab PO QTUTHSASU 05/13/17 05/13/17 Simvastatin [Zocor] 0.5 tab PO HS 05/13/17 05/13/17 Zinc 50 mg PO HS 05/13/17 05/13/17 Previous Rx's Medication Instructions Recorded Cymbalta (duloxetine) 20 mg 20 mg PO QAM #30 cap 03/28/17 capsule,delayed release Cymbalta (duloxetine) 30 mg 30 mg PO HS #30 cap 03/28/17 capsule,delayed release labetalol 200 mg tablet 200 mg PO BID #60 tab 03/28/17 Novolog FlexPen (insulin aspart) 25 unit SQ TID #15 ml 05/02/17 100 unit/mL PEN Allergies Allergy/AdvReac Type Severity Reaction Status Date / Time minocycline Allergy Intermediate HIVES Verified 05/13/17 14:43 Penicillins Allergy Unknown Verified 05/13/17 14:43 Sulfa (Sulfonamide Allergy Unknown Verified 05/13/17 14:43 Antibiotics) Review of Systems Constitutional: Denies: fever, chills Eyes: Denies: eye pain, vision change ENT: Denies: ear pain, throat pain Cardiovascular: Denies: chest pain, palpitations Respiratory: Reports: cough, dyspnea, wheezes. Denies: hemoptysis Gastrointestinal: Denies: abdominal pain, nausea, vomiting, diarrhea Genitourinary: Denies: urgency, dysuria Musculoskeletal: Denies: back pain, arthralgia Integumentary: Denies: erythema, rash Neurological: Denies: headache, numbness Psychiatric: Denies: anxiety, depression Endocrine: Denies: polydipsia, polyuria Hematological/Lymphatic: Denies: easy bruising, lymphadenopathy Allergic/Immunologic: Denies: facial swelling, urticaria PFSH Patient Stated Medical History Transient Ischemic Attacks ( Yes TIA) Cataracts Yes Congestive Heart Failure Yes Hypertension Yes Chronic Obstructive Pulmonary Yes Disease (COPD) Diabetes Mellitus Type 2 Yes Osteoarthritis Yes Surgical History: hysterectomy w/o BSO 1975. Appendectomy. Right BKA 01/04/[address] Cross. Incision Family History: Family History (Last Updated 11/30/16 @ 14:06 by Nessa Pitts [facility]) Father Hodgkins lymphoma Mother Diabetes mellitus Daughter Diabetes mellitus Unknown Heart disease Small cell lung cancer Epilepsy - Social History Smoking status: Current every day smoker Substance use type: does not use Alcohol intake frequency: does not drink Physical Exam - Limitations Limitations: no limitations - General General appearance: alert, in no apparent distress - Normal Exams: Head:: Normocephalic without trauma Eyes:: Pupils are PERRLA w/ EOMI, No scleral icterus, irritation, or foreign bodies noted ENMT:: No facial trauma, nasal exudates, pharyngeal erythema, or exudates are noted Dental: No fractured, loose, or missing teeth noted Neck:: Full range of motion, without adenopathy, JVD, bruits or thyromegaly Chest/Respirations:: with good airflow (bilateral end expiratory wheezes.), and symmetry bilaterally Cardiovascular:: Regular rate and rhythm, without murmur or gallop, Pulses 2+ all extremities, capillary refill, <2 seconds all extremities Abdomen:: Bowel sounds positive, soft, non-tender, non-distended, no hepatosplenomegaly, masses or bruits noted Lymphatic:: No lymphadenopathy, or lymphedema noted Musculoskeletal:: No tenderness, or deformity noted, good range of motion, all extremities Integumentary:: No rashes, hives, or bruising noted, hair and nails, without abnormality Neurological:: Patient is alert, and oriented, cranial nerves, motor/sensory/ cerebellar, exams w/o gross deficits, to observation Psychiatric:: Patient exhibits, appropriate attention, emotion and affect Course Vital Signs Temperature 99.1 F 05/13/17 14:00 Pulse Rate 68 05/13/17 14:00 Respiratory Rate 28 H 05/13/17 14:00 Pulse Oximetry 90 05/13/17 14:00 Temperature 99.1 F 05/13/17 14:00 Pulse Rate 74 05/13/17 16:15 Respiratory Rate 18 05/13/17 15:24 Blood Pressure 198/86 H 05/13/17 16:01 Pulse Oximetry 90 05/13/17 16:15 Medical Decision Making - [facility] Narrative Medical decision making narrative: Labs/imaging were discussed in detail with the patient and family and questions are answered. Patient received 125 mg of Solu-Medrol intravenously from EMS prior to arrival to the emergency department. Patient received 2 DuoNeb treatments in the emergency department with improvement of symptoms. Patient was given Levaquin 750 mg IV 1 after blood cultures and lactic acid were obtained. Patient becomes hypoxic with speaking or with any form of ambulation and cannot perform her activities of daily living at home. She is discussed with her primary care physician Dr. Limon who agrees to accept the patient to his service for further evaluation and treatment. No further orders from accepting physician who is in agreement with the current plan of management. She is admitted to the hospital in improved condition. She was given Levaquin 750 mg IV times one at 1719 when sepsis was considered. She left the ED prior to Levaquin being initiated and a call was placed to the patient's nurse on the floor who will hang the Levaquin based on my order. - Differential Diagnosis COPD, PNA, viral syndrome, Metabolic disorder - Lab Data Result diagrams: 05/13/17 14:38 05/13/17 14:38 Lab Results 05/13/17 05/13/17 05/13/17 Range/Units 14:38 14:38 14:38 WBC 8.3 (4.5-11.0) T/MM3 RBC 5.73 H (4.00-5.20) M/MM3 Hgb 17.5 H (12-16) GM/DL Hct 52.9 H (36-46) % MCV 92.3 (80-100) UM3 MCH 30.5 (26-34) UUG MCHC 33.1 (31-37) GM/DL RDW Std Deviation 44.2 (36.9-50.2) FL Plt Count 156 (130-400) T/MM3 MPV 10.3 (9.4-12.4) UM3 Immature Gran % (Auto) 0.1 (0.0-0.5) % Neut % (Auto) 77.9 H (33-66) % Lymph % (Auto) 15.4 L (23-45) % [place] % (Auto) 3.9 (0-9.0) % Eos % (Auto) 2.2 (0-4) % Baso % (Auto) 0.5 (0-2) % Neut # (Auto) 6.5 (1.8-7.7) T/MM3 Lymph # (Auto) 1.3 (1-4.8) T/MM3 [place] # (Auto) 0.3 (0-0.8) T/MM3 Eos # (Auto) 0.2 (0-0.5) T/MM3 Baso # (Auto) 0.0 (0-0.2) T/MM3 Abs Immat Gran (auto) 0.01 (0.00-0.03) T/MM3 Turbidity < 20 (0-20) Sodium 146 H (134-144) MEQ/L Potassium 3.9 (3.6-5) MEQ/L Chloride 103 (98-107) MEQ/L Carbon Dioxide 32 H (22-30) MEQ/L Anion Gap 11 (5-15) MEQ/L BUN 11.0 (7-17) MG/DL Creatinine 0.7 (0.7-1.2) mg/dL GFR Calculation 82 BUN/Creatinine Ratio 16 (6-26) RATIO Glucose 113 H (65-110) MG/DL Calculated Osmolality 281 H (261-280) MOSM/KG Calcium 10.1 (8.4-10.2) MG/DL Total Bilirubin 0.40 (0.20-1.30) MG/DL Icterus Index < 2 (0-7) AST 18 (14-36) U/L ALT 26 (9-52) U/L Alkaline Phosphatase 70 (38-126) U/L Troponin I < 0.012 (0-0.12) ng/ml NT-Pro-B Natriuret Pep 414 H (0-175) pg/mL Total Protein 6.8 (6.3-8.2) g/dL Albumin 4.0 (3.5-5.0) g/dL Globulin 2.8 (2.4-3.6) G/DL Albumin/Globulin Ratio 1.4 (1.1-2.2) RATIO Plasma Lactate (0.6-2.2) MMOL/L Procalcitonin NG/ML Specimen Hemolysis < 15 (0-25) 05/13/17 05/13/17 Range/Units 16:35 16:39 WBC (4.5-11.0) T/MM3 RBC (4.00-5.20) M/MM3 Hgb (12-16) GM/DL Hct (36-46) % MCV (80-100) UM3 MCH (26-34) UUG MCHC (31-37) GM/DL RDW Std Deviation (36.9-50.2) FL Plt Count (130-400) T/MM3 MPV (9.4-12.4) UM3 Immature Gran % (Auto) (0.0-0.5) % Neut % (Auto) (33-66) % Lymph % (Auto) (23-45) % [place] % (Auto) (0-9.0) % Eos % (Auto) (0-4) % Baso % (Auto) (0-2) % Neut # (Auto) (1.8-7.7) T/MM3 Lymph # (Auto) (1-4.8) T/MM3 [place] # (Auto) (0-0.8) T/MM3 Eos # (Auto) (0-0.5) T/MM3 Baso # (Auto) (0-0.2) T/MM3 Abs Immat Gran (auto) (0.00-0.03) T/MM3 Turbidity (0-20) Sodium (134-144) MEQ/L Potassium (3.6-5) MEQ/L Chloride (98-107) MEQ/L Carbon Dioxide (22-30) MEQ/L Anion Gap (5-15) MEQ/L BUN (7-17) MG/DL Creatinine (0.7-1.2) mg/dL GFR Calculation BUN/Creatinine Ratio (6-26) RATIO Glucose (65-110) MG/DL Calculated Osmolality (261-280) MOSM/KG Calcium (8.4-10.2) MG/DL Total Bilirubin (0.20-1.30) MG/DL Icterus Index (0-7) AST (14-36) U/L ALT (9-52) U/L Alkaline Phosphatase (38-126) U/L Troponin I (0-0.12) ng/ml NT-Pro-B Natriuret Pep (0-175) pg/mL Total Protein (6.3-8.2) g/dL Albumin (3.5-5.0) g/dL Globulin (2.4-3.6) G/DL Albumin/Globulin Ratio (1.1-2.2) RATIO Plasma Lactate 1.1 (0.6-2.2) MMOL/L Procalcitonin < 0.05 NG/ML Specimen Hemolysis (0-25) - Radiology Data CXR - chronic lung changes. Similar to comparison exam. Cannot completely exclude underlying pulmonary vascular congestion or infiltrate. - EKG Data EKG #1 EKG results narrative: Sinus rhythm. 60 bpm. No STEMI. Disposition Clinical Impression: Acute exacerbation of chronic obstructive airways disease Disposition: 02 To [facility] [place] Acute Care Condition: Improved Time of Disposition: 15:54 (Admit. Dr. Limon. ) - Seen By: physician
--- OUTSIDE RECORDS SUMMARY | 2017-05-13 14:27 | External Medical Summary | Continuity of Care Document ---
:1945 Author Organization [facility] Allergies Active Description Code Type Severity Reaction Onset Reported/ Identified Relationship Clinical to Patient Status Yes Penicillins Penic Drug Unknown RASH 03/26/2014 illin Aller s gy Yes Sulfa Sulfa Drug Unknown RASH 03/26/2014 (Sulfonamide (Sulf Aller Antibiotics) onami gy de Antib iotic s) Yes minocycline minoc Drug Mild itching 04/07/2016 yclin Aller e gy Medications There is no data. 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 04/09/2016 Renato Hernandez DO J44.9 CHRONIC OBSTRUCTIVE W PULMONARY DISEASE, UNSPECIFIED 04/09/2016 Renato Hernandez DO J90 PLEURAL EFFUSION, W NOT ELSEWHERE CLASSIFIED 04/09/2016 Renato Hernandez DO N28.1 CYST OF KIDNEY, W ACQUIRED 04/09/2016 Renato Hernandez DO R06.89 OTHER ABNORMALITIES W OF BREATHING 04/09/2016 Renato Hernandez DO R09.02 HYPOXEMIA W 04/09/2016 Renato Hernandez DO R91.1 SOLITARY PULMONARY W NODULE 04/09/2016 Renato Hernandez DO S22.42XA MULTIPLE FRACTURES W OF RIBS, LEFT SIDE, INIT FOR CL 04/09/2016 Renato Hernandez DO W18.39XA OTHER FALL ON SAME W LEVEL, INITIAL ENCOUNTER 04/09/2016 Renato Hernandez DO Z87.01 PERSONAL HISTORY OF W PNEUMONIA (RECURRENT) 04/09/2016 Renato Hernandez DO Z87.440 PERSONAL HISTORY OF W URINARY (TRACT) INFECTIONS 04/09/2016 Renato Hernandez DO Z88.0 ALLERGY STATUS TO W PENICILLIN 04/09/2016 Renato Hernandez DO Z88.1 ALLERGY STATUS TO W OTHER ANTIBIOTIC AGENTS STATUS 04/09/2016 Renato Hernandez DO Z88.2 ALLERGY STATUS TO W SULFONAMIDES STATUS Procedures There is no data. Results Test Result Range HEMATOCRIT - 04/07/16 17:50 MEAN CELL VOLUME 91.8 fl 80.0-100.0 HEMATOCRIT 48.4 % 37.0-47.0 TROPONIN I BEDSIDE - 04/09/16 13:08 METHOD Bedside TROPONIN I < 0.04 ng/mL < 0.11 CBC W/DIFF - 04/09/16 13:09 EOSINOPHIL # 0.1 k/cumm 0.1-0.5 EOSINOPHIL % 2 % 2-4 GRANULOCYTE # 6.4 k/cumm 2.0-9.0 GRANULOCYTE % 76 % 50-75 LYMPHOCYTE # 1.0 k/cumm 1.0-4.0 LYMPHOCYTE % 11 % 20-30 MEAN CELL HGB 30.4 pg 27.0-33.0 MEAN CELL HGB CONCENTRATION 33.2 g/dL 32.0-37.0 MEAN CELL VOLUME 91.4 fl 80.0-100.0 MONOCYTE # 0.9 k/cumm 0.1-1.0 MONOCYTE % 11 % 4-6 RED BLOOD CELL 5.37 m/cumm 4.00-6.00 RED CELL DISTRIBUTION WIDTH 14.6 % 11.0-15.6 WHITE BLOOD CELL 8.4 k/cumm 5.0-10.0 HEMOGLOBIN 16.3 gm/dL 12.0-16.0 HEMATOCRIT 49.1 % 37.0-47.0 PLATELET COUNT 201 k/cumm 150-400 METABOLIC PANEL, COMPREHN - 04/09/16 13:09 POTASSIUM 5.0 mmol/L 3.5-5.3 EST GFR (MDRD) > 60 mL/min > 59 ANION GAP 9 mmol/L 5-15 GLUCOSE 207 mg/dL 70-99 CALCIUM 10.1 mg/dL 8.5-10.1 BLOOD UREA NITROGEN 16 mg/dL 7-20 CREATININE 0.7 mg/dL 0.6-1.0 SODIUM 137 mmol/L 135-148 CHLORIDE 100 mmol/L 98-110 AST/SGOT 25 Units/L 10-37 ALT/SGPT 26 Units/L < 66 CARBON DIOXIDE 28 mmol/L 21-32 TOTAL PROTEIN 7.3 gm/dL 6.4-8.2 ALBUMIN 3.5 gm/dL 3.4-5.0 BILI TOTAL 0.9 mg/dL 0.0-1.0 ALKALINE PHOSPHATASE TOTAL 87 IU/L 45-117 D-DIMER QUANT - 04/09/16 13:09 D-DIMER QUANT 515 ng/mL 0-229 URINALYSIS, ROUTINE - 04/09/16 15:45 UA LEUKOCYTE ESTERASE DIPSTICK NEGATIVE NEGATIVE UA NITRITE DIPSTICK NEGATIVE NEGATIVE UA PROTEIN DIPSTICK 1+ NEGATIVE UA GLUCOSE DIPSTICK NEGATIVE NEGATIVE UA KETONE DIPSTICK NEGATIVE NEGATIVE UA UROBILINOGEN DIPSTICK NORMAL NORMAL UA BILIRUBIN DIPSTICK NEGATIVE NEGATIVE UA BLOOD DIPSTICK NEGATIVE NEGATIVE UA SPECIFIC GRAVITY 1.025 1.015-1.025 UR PH 5.0 5.0-7.0 UA MICROSCOPIC - 04/09/16 15:45 UA BACTERIA 2+ NEGATIVE UA EPITHELIAL CELLS 1+ epi/hpf 0 - 1+ UA MUCUS 1+ NEG TO 1+ UA RBC 0-3 rbc/hpf 0 - 3 UA VOLUME FOR EXAM 12.0 mL (12mL STD) UA WBC 0-1 wbc/hpf 0 - 5 GLUCOSE (POC) - 04/09/16 21:11 GLUCOSE (POC) 221 mg/dL 70-99 GLUCOSE (POC) - 04/10/16 06:53 GLUCOSE (POC) 207 mg/dL 70-99 GLUCOSE (POC) - 04/10/16 07:49 GLUCOSE (POC) 188 mg/dL 70-99 GLUCOSE (POC) - 04/10/16 17:46 GLUCOSE (POC) 290 mg/dL 70-99 GLUCOSE (POC) - 04/10/16 21:12 GLUCOSE (POC) 173 mg/dL 70-99 GLUCOSE (POC) - 04/11/16 06:33 GLUCOSE (POC) 140 mg/dL 70-99 GLUCOSE (POC) - 04/11/16 11:42 GLUCOSE (POC) 206 mg/dL 70-99 GLUCOSE (POC) - 04/11/16 16:56 GLUCOSE (POC) 204 mg/dL 70-99 GLUCOSE (POC) - 04/11/16 21:07 GLUCOSE (POC) 104 mg/dL 70-99 GLUCOSE (POC) - 04/12/16 07:49 GLUCOSE (POC) 148 mg/dL 70-99 GLUCOSE (POC) - 04/12/16 09:50 GLUCOSE (POC) 266 mg/dL 70-99 GLUCOSE (POC) - 04/12/16 15:19 GLUCOSE (POC) 195 mg/dL 70-99 GLUCOSE (POC) - 04/12/16 22:38 GLUCOSE (POC) 289 mg/dL 70-99 GLUCOSE (POC) - 04/13/16 05:02 GLUCOSE (POC) 127 mg/dL 70-99 GLUCOSE (POC) - 04/13/16 09:37 GLUCOSE (POC) 151 mg/dL 70-99 ARTERIAL BLOOD GAS - 04/13/16 11:50 ABG BASE EXCESS 4.3 meq/L -3.0-3.0 ABG DEVICE NC ABG BICARBONATE 30.8 meq/L 23.0-28.0 ABG L/M 4.0 ABG PCO2 53 mm Hg 34-45 ABG PH 7.38 7.35-7.45 ABG PO2 66 mm Hg 75-100 ABG O2 SATURATION 93 % 93-100 ABG SITE RT RADIAL GLUCOSE (POC) - 04/13/16 21:01 GLUCOSE (POC) 193 mg/dL 70-99 METABOLIC PANEL, BASIC - 04/14/16 05:29 POTASSIUM 5.1 mmol/L 3.5-5.3 EST GFR (MDRD) > 60 mL/min > 59 ANION GAP 7 mmol/L 5-15 EST CrCl (CG) > 60 mL/min > 59 GLUCOSE 176 mg/dL 70-99 CALCIUM 9.4 mg/dL 8.5-10.1 BLOOD UREA NITROGEN 15 mg/dL 7-20 CREATININE 0.7 mg/dL 0.6-1.0 SODIUM 140 mmol/L 135-148 CHLORIDE 103 mmol/L 98-110 CARBON DIOXIDE 30 mmol/L 21-32 CBC - 04/14/16 05:29 MEAN CELL HGB 30.4 pg 27.0-33.0 MEAN CELL HGB CONCENTRATION 33.3 g/dL 32.0-37.0 MEAN CELL VOLUME 91.4 fl 80.0-100.0 RED BLOOD CELL 4.74 m/cumm 4.00-6.00 RED CELL DISTRIBUTION WIDTH 13.7 % 11.0-15.6 WHITE BLOOD CELL 8.8 k/cumm 5.0-10.0 HEMOGLOBIN 14.4 gm/dL 12.0-16.0 HEMATOCRIT 43.3 % 37.0-47.0 PLATELET COUNT 225 k/cumm 150-400 GLUCOSE (POC) - 04/14/16 05:33 GLUCOSE (POC) 183 mg/dL 70-99 GLUCOSE (POC) - 04/14/16 09:47 GLUCOSE (POC) 268 mg/dL 70-99 GLUCOSE (POC) - 04/14/16 10:38 GLUCOSE (POC) 295 mg/dL 70-99 GLUCOSE (POC) - 04/14/16 15:00 GLUCOSE (POC) 187 mg/dL 70-99 GLUCOSE (POC) - 04/14/16 20:21 GLUCOSE (POC) 163 mg/dL 70-99 GLUCOSE (POC) - 04/15/16 05:35 GLUCOSE (POC) 117 mg/dL 70-99 GLUCOSE (POC) - 04/15/16 09:41 GLUCOSE (POC) 210 mg/dL 70-99 GLUCOSE (POC) - 04/15/16 15:02 GLUCOSE (POC) 130 mg/dL 70-99 GLUCOSE (POC) - 04/15/16 22:28 GLUCOSE (POC) 130 mg/dL 70-99 GLUCOSE (POC) - 04/16/16 05:55 GLUCOSE (POC) 103 mg/dL 70-99 GLUCOSE (POC) - 04/16/16 09:26 GLUCOSE (POC) 199 mg/dL 70-99 GLUCOSE (POC) - 04/16/16 14:59 GLUCOSE (POC) 77 mg/dL 70-99 GLUCOSE (POC) - 04/17/16 05:28 GLUCOSE (POC) 117 mg/dL 70-99 GLUCOSE (POC) - 04/17/16 10:06 GLUCOSE (POC) 217 mg/dL 70-99 Encounters ACCT No. Visit Discharge Status Pt. Type Provider Facility Loc./Unit Complaint Date/Time [id number] 08/20/2014 08/20/2014 [facility] Outpatient Cross, 13:15:00 23:59:59 Nhi [id number] 04/09/2016 04/17/2016 DIS Inpatient David Bonner7TS 1358 16:26:00 14:26:00 Renato PELLETIER [facility] [id number] 04/07/2016 04/07/2016 DIS Emergency Jake BonnerEDS 1971 14:48:00 19:01:00 Javad ARAYA Iva
[2017-05-13] MEDS: SALINE FLUSH 10ml SYRINGE IVF PRN ×2 (14:39→21:13)
[2017-05-13] MEDS ORDERED: ALBUTEROL/IPRATROPIUM 2.5mg-0.5mg/3ml NEB AEROSOL ONE (14:48)
[2017-05-13] MEDS ORDERED: LEVOFLOXACIN PB 750 MG/150 ML BAG IV SCH (17:30)
[2017-05-13] MEDS ORDERED: METHYLPREDNISOLONE SOD SUCC 125mg/2ml INJECTION IVP SCH (17:45)
[2017-05-13] MEDS: LEVOFLOXACIN PB 750 MG/150 ML BAG IV SCH (18:09)
[2017-05-13] MEDS ORDERED: BUDESONIDE INH.SOLN 0.5mg/2ml NEB IPPB SCH (19:00)
[2017-05-13] MEDS: ALBUTEROL/IPRATROPIUM 2.5mg-0.5mg/3ml NEB AEROSOL SCH (19:45)
[2017-05-13] MEDS ORDERED: ACETAMINOPHEN 650 MG/20.3 ML SOLUTION PO PRN (20:45)
[2017-05-13] MEDS: ZOLPIDEM 5 MG TABLET PO PRN ×3 (21:04→21:12)
[2017-05-13] MEDS: ACETAMINOPHEN 325 MG TABLET PO PRN (21:13)
[2017-05-13] MEDS: METHYLPREDNISOLONE SOD SUCC 125mg/2ml INJECTION IVP SCH (21:17)
[2017-05-13] MEDS: METOPROLOL 5mg/5ml INJECTION IVP SCH ×2 (22:29→22:40)
[2017-05-14] MEDS: METHYLPREDNISOLONE SOD SUCC 125mg/2ml INJECTION IVP SCH ×3 (01:04→18:16)
[2017-05-14] MEDS: SALINE FLUSH 10ml SYRINGE IVF PRN ×3 (01:05→21:05)
[2017-05-14] MEDS: ACETAMINOPHEN 325 MG TABLET PO PRN (04:32)
[2017-05-14] MEDS: ALBUTEROL/IPRATROPIUM 2.5mg-0.5mg/3ml NEB AEROSOL SCH ×4 (06:20→19:57)
[2017-05-14] MEDS: BUDESONIDE INH.SOLN 0.5mg/2ml NEB AEROSOL SCH ×2 (06:20→19:58)
[2017-05-14] MEDS: AMLODIPINE 5 MG TABLET PO SCH ×2 (06:23→08:59)
--- NOTE | 2017-05-14 07:45 | History and Physical ---
HPI The patient is a 71-year-old female who presented to [facility] ED today after she called 911. She presented with the chief complaint of approximately 1-1/2 to 2 week history of gradually worsening shortness of breath and of coughing--dry nonproductive cough with occasional yellowish sputum production. She also complained of feeling chills and cold. In addition , she is having loose watery diarrhea 2-4 episodes per day for the last 1-1/2 weeks as well. She gets so weak. She called 911 today because she was requiring more oxygen and she felt like she could not stay home due to her significant weakness and the need for her to use oxygen. She typically uses 2 liters oxygen at home, typically at night but occasionally during the daytime. She denies any hemoptysis. In addition, patient also has been having high blood pressure in 190s/100 or so on multiple occasions lately at home. REVIEW OF SYSTEMS Denies any chest pain or orthopnea. No PND. No leg swelling. Denies any hematochezia. No melena. Denies any TIA or CVA symptoms. She does say that she is weak, as well as lightheaded, short of breath, coughing, fever and chills as stated in HPI above. Denies any hematochezia. No melena. Denies any TIA or CVA symptoms. PAST MEDICAL HISTORY 1. COPD. 2. Type 2 diabetes needing insulin. 3. Congestive heart failure. 4. Hypertension. 5. COPD. 6. Osteoarthritis. 7. TIA. 8. Diabetic ulcer with amputation. 9. Peripheral vascular disease. 10. Diabetic neuropathy. 11. Dyslipidemia. 12. Hypokalemia. ALLERGIES Minocycline, penicillins, sulfa. CURRENT MEDICATION 1. Lyrica 50 one tablet t.i.d. 2. Vitamin D3 1,000 units one capsule daily. 3. Lantus 16 units b.i.d. 4. [place] 5/325 mg one tablet p.o. q.i.d. p.r.n. 5. Magnesium oxide four tablets p.o. b.i.d. 6. DuoNeb 3 cc q.i.d. p.r.n. 7. Multivitamin one tablet daily. 8. Potassium chloride one tablet p.o. q. Sunday, , Sunday, Sunday. 9. Zocor 0.5 mg one tablet at bedtime. 10. Zinc 50 mg one tablet at bedtime. FAMILY HISTORY Dad from Hodgkin's lymphoma and mother had diabetes. Daughter has diabetes. There is unknown family of heart disease, small cell lung cancer or epilepsy. SOCIAL HISTORY Patient is a . She smoked cigarettes for many, many years. Denies any substance abuse. Alcohol: She doesn't drink. PHYSICAL EXAMINATION VITAL SIGNS: Blood pressure at this time was 150/79 with a pulse of 93 on 5 liters oxygen by nasal cannula. Blood pressure in the emergency room was 194/ 85. Temperature 97.9. Pulse 86. Respiration 20. LABORATORY CBC did show hemoglobin of 17.5 which is chronic for this patient. Sodium 146. Potassium 3.9. Chloride 103. CO2 32. Creatinine 0.7. BUN 11. Glucose 113. Calculated osmolality 281. ProBNP 414. Liver function tests are normal. Plasma lactate is 1.1. Procalcitonin less than 0.05. IMAGING Chest x-ray: Chronic lung disease. Chronic congestion. Blunting of the left costophrenic angle. ASSESSMENT 1. COPD with acute exacerbation. 2. Hypoxia due to #1 above. 3. Probable pneumonia in a patient with COPD. 4. Generalized weakness lately. 5. Acute diarrhea. 6. Confusion lately. 7. Elevated blood pressure. 8. Hypertension. 9. Type 2 diabetes - needing insulin. 10. Smoking addiction. 11. Peripheral vascular disease. 12. Diabetic neuropathy. PLAN Admit patient to [facility] and start patient on IV antibiotics, breathing treatments, IV Solu-Medrol, oxygen supplementation as well as patient' s home medication. Followup electrolytes in the morning. MTDD
[2017-05-14] MEDS ORDERED: PREGABALIN 50 MG CAPSULE PO PRN (07:53)
--- NOTE | 2017-05-14 08:02 | XRay Report ---
Indication: COPD PROCEDURE: XR chest 1V: Encounter: Initial Comparison: April 18, 2016 Findings: The lungs are stable in appearance with diffuse mild interstitial prominence possibly related to the patient's history of COPD. No focal consolidative pneumonia. There is no pleural effusion or pneumothorax. The heart size, pulmonary vascularity and mediastinal contours are unchanged. IMPRESSION: No acute cardiopulmonary disease. .
[2017-05-14] MEDS: INSULIN ASPART 100unit/ml INJECTION SQ SCH ×3 (08:57→18:16)
[2017-05-14] MEDS: INSULIN GLARGINE 100unit/ml INJECTION SQ SCH ×2 (08:58→20:41)
[2017-05-14] MEDS: MAGNESIUM OXIDE 400 MG TABLET PO SCH ×2 (08:58→20:38)
[2017-05-14] MEDS: LABETALOL 100 MG TABLET PO SCH ×2 (08:58→20:37)
[2017-05-14] MEDS: LISINOPRIL 20 MG TABLET PO SCH (08:59)
[2017-05-14] MEDS: DULOXETINE 20 MG CAPSULE PO SCH (08:59)
[2017-05-14] MEDS ORDERED: INSULIN ASPART 25 UNIT SQ SCH (09:00)
[2017-05-14] MEDS ORDERED: [UNRECOGNIZED DRUG - OTHER] PO SCH (09:00)
[2017-05-14] MEDS ORDERED: MULTIVIT CALC MINS PO SCH (09:00)
[2017-05-14] MEDS ORDERED: IRON PO SCH (09:00)
[2017-05-14] MEDS ORDERED: FOLIC PO SCH (09:00)
[2017-05-14] MEDS ORDERED: LABETALOL HCL 200 MG PO SCH (09:00)
[2017-05-14] MEDS ORDERED: NON-FORMULARY MEDICATION 1 EACH EACH (Cholecalciferol (Vitamin D3) [Vitamin D3] 1,000 UNIT PO SCH (09:00)
[2017-05-14 10:02] VITALS: BMI 28.6
[2017-05-14] MEDS: ALBUTEROL 2.5mg/3ml (0.083%) NEB AEROSOL PRN (11:05)
[2017-05-14] MEDS: LORazepam 0.5 MG TABLET PO PRN ×2 (11:29→19:43)
[2017-05-14] MEDS: LEVOFLOXACIN PB 750 MG/150 ML BAG IV SCH (18:16)
[2017-05-14] MEDS: NICOTINE 21 MG PATCH TD SCH (18:16)
[2017-05-14] MEDS: HYDROCODONE/APAP 5mg/325mg TABLET PO PRN (18:24)
[2017-05-14] MEDS ORDERED: FALL RISK - PHARMACY CONSULT MC ONE (18:27)
[2017-05-14] MEDS: SIMVASTATIN 20 MG TABLET PO SCH (20:37)
[2017-05-14] MEDS: DULOXETINE 30 MG CAPSULE PO SCH (20:38)
[2017-05-14] MEDS: ZINC GLUCONATE 50 MG TABLET PO SCH (20:38)
[2017-05-14] MEDS ORDERED: ZINC 50 MG PO SCH (21:00)
[2017-05-14] MEDS ORDERED: DiphenhydrAMINE 50 MG/ML INJECTION IVP ONE (21:04)
[2017-05-15] MEDS: SALINE FLUSH 10ml SYRINGE IVF PRN ×2 (01:35→04:33)
[2017-05-15] MEDS: METHYLPREDNISOLONE SOD SUCC 125mg/2ml INJECTION IVP SCH ×3 (01:35→18:14)
[2017-05-15] MEDS: LORazepam 0.5 MG TABLET PO PRN ×2 (02:57→14:28)
[2017-05-15] MEDS: ALBUTEROL 2.5mg/3ml (0.083%) NEB AEROSOL PRN (03:26)
[2017-05-15] MEDS: HYDROCODONE/APAP 5mg/325mg TABLET PO PRN (04:32)
[2017-05-15] MEDS: INSULIN ASPART 100unit/ml INJECTION SQ SCH ×3 (08:06→18:15)
[2017-05-15] MEDS: LISINOPRIL 20 MG TABLET PO SCH (08:08)
[2017-05-15] MEDS: MAGNESIUM OXIDE 400 MG TABLET PO SCH ×2 (08:08→22:16)
[2017-05-15] MEDS: LABETALOL 100 MG TABLET PO SCH ×2 (08:08→22:17)
[2017-05-15] MEDS: AMLODIPINE 5 MG TABLET PO SCH (08:08)
[2017-05-15] MEDS: DULOXETINE 20 MG CAPSULE PO SCH (08:08)
[2017-05-15] MEDS: AZITHROMYCIN 500 MG TABLET PO SCH (08:08)
[2017-05-15] MEDS: INSULIN GLARGINE 100unit/ml INJECTION SQ SCH ×2 (08:09→22:17)
[2017-05-15] MEDS: ALBUTEROL/IPRATROPIUM 2.5mg-0.5mg/3ml NEB AEROSOL SCH ×4 (08:25→20:46)
[2017-05-15] MEDS: BUDESONIDE INH.SOLN 0.5mg/2ml NEB AEROSOL SCH ×2 (08:25→20:46)
--- NOTE | 2017-05-15 10:06 | CT Scan Report ---
Indication: increased confusion PROCEDURE: CT head/brain wo con: Encounter: Initial Comparison: August 18, 2014 Technique: Axial CT images through the head were performed without contrast. Iterative Reconstruction dose reducing technique was utilized. FINDINGS: The ventricles are of normal size, shape, and contour for the patient's age. There are scattered areas of low attenuation in the white matter which most likely represent changes from chronic microvascular ischemia. The brainstem, cerebellum, and cerebral hemispheres otherwise have a normal morphology and CT attenuation. There is no evidence of midline displacement. No hemorrhage, signs of acute territorial stroke, mass effect, mass lesions, or edema is evident. The visualized portions of the skull base, midface, and calvarium demonstrate no abnormality. The paranasal sinuses are well aerated and free of significant disease. The tympanic and mastoid cavities appear normal. IMPRESSION: No acute intracranial abnormality or hemorrhage. .
[2017-05-15] MEDS: NICOTINE PATCH REMOVAL TD SCH (10:30)
[2017-05-15] MEDS: NICOTINE 21 MG PATCH TD SCH (10:30)
--- NOTE | 2017-05-15 14:21 | Consultation ---
DATE OF CONSULTATION 05/15/[address] Jordy Limon CHIEF COMPLAINT Confusion. HISTORY OF PRESENT ILLNESS Patient is a 71-year-old female with history of diabetes, COPD, peripheral vascular disease and depression. The patient presented to [facility] with exacerbation of her breathing problems and diarrhea. She has had some mild confusion and headache. Her blood pressure has been on the 150-170/ 90 range. The patient said that she has had a rough week due to the loss of one of her friends. She has been very depressed and stressed about that. Patient's confusion got slightly worse during admission. She has been treated for COPD exacerbation and diarrhea. Her lab work showed some mild dehydration which later improved with fluid. The patient had no focal weakness or numbness and no worsening of her headaches. On physical examination the patient was awake, alert, oriented to self, place and situation. She had problem with calculation and attention. Her baseline fund of knowledge was acceptable. Her speech was fluent and articulate. Facial motor and sensory were normal. Her motor examination in the upper extremities was 5/5, in the left lower extremity 5/5, in the right lower extremity it was limited by below-knee amputation. Sensory examination was diminished for light touch and pinprick in the left foot and leg up to the knee. It was also limited in the finger and hands bilaterally. Deep tendon reflexes were 2- /4. Coordination for [id number] was borderline bilaterally. ASSESSMENT Metabolic encephalopathy associated with dehydration, COPD exacerbation and diarrhea. There are no obvious signs of sepsis at present time. There are no signs of focal weakness or numbness suspicious for a stroke or a focal brain injury. Her blood pressure has been elevated out of proportion to her normal baseline which can also cause some hypertensive encephalopathy. PLAN 1. Obtain a CT of the head to rule out intracranial abnormalities like hemorrhage or stroke. 2. Continue treatment for dehydration and COPD exacerbation. 3. Look for any signs of sepsis based on lab work and patient's physical condition. 4. Optimize treatment for hypertension and keep it in the upper range of normal. 5. If patient's condition gets worse then she may benefit from having an MRI of the brain or spinal tap accordingly. [facility]
--- NOTE | 2017-05-15 21:46 | Progress Note ---
DATE 05/14/2017 YAMILKA May is lying in bed. She thought she was better. She doesn't have any new complaints. She is still short of breath, she says. PHYSICAL EXAM GENERAL: The patient looks comfortable, in no acute distress. Maybe mild dyspnea. VITAL SIGNS: Blood pressure 156/73, respirations 24, pulse 79, temperature 97.1. Oxygen saturation 95% on oxygen at 2 L/nasal cannula. NECK: Supple. CHEST: Lungs have crackles at the bases. CARDIOVASCULAR: Regular rate and rhythm. No murmur. ABDOMEN: Soft, nontender. No mass is palpable. EXTREMITIES: No cyanosis or clubbing. Edema is noted. NEUROLOGIC: Grossly intact. LABORATORY WBC 7000. Hemoglobin 17.7. Potassium 4.1, sodium 139, blood sugar running between 158-245. Liver function tests were normal. ASSESSMENT 1. COPD with acute exacerbation. 2. Hypoxia. 3. Generalized weakness. 4. Acute diarrhea. 5. Acute delirium. 6. Elevated blood pressure. 7. Type II diabetes mellitus - needing insulin. 8. Diabetic neuropathy. PLAN Continue current treatment of IV antibiotics, breathing treatments and Solu- Medrol. Consultation to Dr. Song due to acute delirium and acute confusion lately. RICKID
--- NOTE | 2017-05-15 22:00 | Progress Note ---
DATE 05/15/2017 YAMILKA May had a rough afternoon with confusion, seeing things and telling her daughter all kind of stuff that has no reality. She got some medication and is sleeping deeply. PHYSICAL EXAM GENERAL: She is sleeping right now. NECK: Supple. CHEST: Lungs are clearing. CARDIOVASCULAR: Regular rate and rhythm. ABDOMEN: Soft. EXTREMITIES: Edema is improved in the left lower extremity. NEUROLOGIC: Patient is sleeping right now. LABORATORY No lab today. Blood sugar is running between 158-213. ASSESSMENT 1. COPD with acute exacerbation. 2. Hypoxia due to #1 above. 3. Generalized weakness. 4. Acute delirium. 5. Acute diarrhea. 6. Hypertension with elevated systolic blood pressure now. 7. Type II diabetes mellitus - needing insulin. 8. Smoking addiction. 9. Peripheral vascular disease. 10. Diabetic neuropathy. PLAN Check UA tonight. Continue IV antibiotics. Continue IV Solu-Medrol and breathing treatments. If acute confusion doesn't clear will probably cut down Solu-Medrol because that can cause delirium and acute confusion in an elderly patient. MTDD
[2017-05-15] MEDS: SIMVASTATIN 20 MG TABLET PO SCH (22:16)
[2017-05-15] MEDS: ZINC GLUCONATE 50 MG TABLET PO SCH (22:16)
[2017-05-15] MEDS: DULOXETINE 30 MG CAPSULE PO SCH (22:16)
[2017-05-15] MEDS: ZOLPIDEM 5 MG TABLET PO PRN (22:18)
[2017-05-16] MEDS: METHYLPREDNISOLONE SOD SUCC 125mg/2ml INJECTION IVP SCH ×3 (01:26→17:55)
[2017-05-16] MEDS: BUDESONIDE INH.SOLN 0.5mg/2ml NEB AEROSOL SCH ×2 (08:01→20:24)
[2017-05-16] MEDS: ALBUTEROL/IPRATROPIUM 2.5mg-0.5mg/3ml NEB AEROSOL SCH ×4 (08:02→20:23)
[2017-05-16] MEDS: LISINOPRIL 20 MG TABLET PO SCH (10:56)
[2017-05-16] MEDS: MAGNESIUM OXIDE 400 MG TABLET PO SCH ×3 (10:57→16:32)
[2017-05-16] MEDS: AZITHROMYCIN 500 MG TABLET PO SCH (10:58)
[2017-05-16] MEDS: LABETALOL 100 MG TABLET PO SCH ×2 (10:58→20:06)
[2017-05-16] MEDS: AMLODIPINE 5 MG TABLET PO SCH (10:58)
[2017-05-16] MEDS: DULOXETINE 20 MG CAPSULE PO SCH (10:59)
[2017-05-16] MEDS: INSULIN ASPART 100unit/ml INJECTION SQ SCH ×3 (11:01→17:56)
[2017-05-16] MEDS: INSULIN GLARGINE 100unit/ml INJECTION SQ SCH ×2 (11:02→20:06)
[2017-05-16] MEDS: NICOTINE 21 MG PATCH TD SCH (11:04)
[2017-05-16] MEDS: NICOTINE PATCH REMOVAL TD SCH (11:04)
[2017-05-16] MEDS: SALINE FLUSH 10ml SYRINGE IVF PRN (18:00)
--- NOTE | 2017-05-16 19:37 | Progress Note ---
DATE 05/16/2017 YAMILKA May actually is sleepy this morning. She got some Ambien last night and slept through the night. PHYSICAL EXAM GENERAL: The patient looks comfortable and is quite sleepy. VITAL SIGNS: Blood pressure 138/62, pulse 67, yesterday 98.4, respirations 18, oxygen saturation 92% on 5 liters oxygen by high flow. HEENT: Unremarkable. NECK: Supple. CHEST: Lungs have crackles at the bases. CARDIOVASCULAR: Regular rate and rhythm. ABDOMEN: Soft. EXTREMITIES: Edema is improving. ASSESSMENT 1. COPD with acute exacerbation. 2. Hypoxia. 3. Generalized weakness. 4. Acute delirium. 5. Acute diarrhea. 6. Elevated blood pressure. 7. Type II diabetes mellitus - needing insulin. 8. Diabetic neuropathy. PLAN 1. CT head was done yesterday which was unremarkable. 2. Continue IV antibiotics and breathing treatments. 3. Monitor electrolytes carefully. MTDD
[2017-05-16] MEDS: SIMVASTATIN 20 MG TABLET PO SCH (20:06)
[2017-05-16] MEDS: ZINC GLUCONATE 50 MG TABLET PO SCH (20:06)
[2017-05-16] MEDS: DULOXETINE 30 MG CAPSULE PO SCH (20:06)
--- NOTE | 2017-05-16 20:16 | Progress Note ---
DATE 05/16/2017 SUBJECTIVE The patient is lying in bed. She is very sleepy and does not want to talk as much. She answers my questions appropriately, albeit, short answers. PHYSICAL EXAM GENERAL: The patient looks comfortable. She is peaceful, sleepy. VITAL SIGNS: Blood pressure 138/62, pulse 67, temperature 98.4, respirations 18 , oxygen saturation 92% on high-flow 5 liters. NECK: Supple. CHEST: Lungs have a few crackles at the bases. CARDIOVASCULAR: Regular rate and rhythm. ABDOMEN: Soft. EXTREMITIES: Edema is improving. NEUROLOGIC: Grossly intact. The patient is quite sleepy so exam was not fully tested. LABORATORY Hemoglobin 18.1, WBC 10.7. Potassium 4.2, glucose 172, creatinine 0.8, magnesium 2.5. PLAN Continue current care. We need to start talking about placement because the patient is so confused she cannot go home at this time. CT head is unremarkable. Dr. Song, neurologist, is also involved in the patient's care. ANDREW
[2017-05-16] MEDS: ZOLPIDEM 5 MG TABLET PO PRN (20:52)
[2017-05-17] MEDS: METHYLPREDNISOLONE SOD SUCC 125mg/2ml INJECTION IVP SCH ×3 (01:33→17:33)
[2017-05-17] MEDS: ACETAMINOPHEN 325 MG TABLET PO PRN (07:10)
[2017-05-17] MEDS: BUDESONIDE INH.SOLN 0.5mg/2ml NEB AEROSOL SCH ×2 (08:00→20:20)
[2017-05-17] MEDS: ALBUTEROL/IPRATROPIUM 2.5mg-0.5mg/3ml NEB AEROSOL SCH ×4 (08:00→20:20)
[2017-05-17] MEDS: LABETALOL 100 MG TABLET PO SCH ×2 (08:28→20:39)
[2017-05-17] MEDS: DULOXETINE 20 MG CAPSULE PO SCH (08:28)
[2017-05-17] MEDS: LISINOPRIL 20 MG TABLET PO SCH (08:28)
[2017-05-17] MEDS: AMLODIPINE 5 MG TABLET PO SCH (08:29)
[2017-05-17] MEDS: AZITHROMYCIN 500 MG TABLET PO SCH (08:29)
[2017-05-17] MEDS: MAGNESIUM OXIDE 400 MG TABLET PO SCH ×2 (08:29→17:17)
[2017-05-17] MEDS: NICOTINE 21 MG PATCH TD SCH (08:29)
[2017-05-17] MEDS: INSULIN GLARGINE 100unit/ml INJECTION SQ SCH ×2 (08:30→20:40)
[2017-05-17] MEDS: NICOTINE PATCH REMOVAL TD SCH (08:30)
[2017-05-17] MEDS: INSULIN ASPART 100unit/ml INJECTION SQ SCH ×3 (08:31→17:58)
[2017-05-17] MEDS: SALINE FLUSH 10ml SYRINGE IVF PRN (08:31)
--- NOTE | 2017-05-17 12:25 | Progress Note ---
DATE 05/17/2017 YAMILKA May is actually sitting on her bed this morning in Room 159 on the medical floor, eating her breakfast. Two nurses were at bedside providing nursing care for this patient this morning. She is alert, she is awake, she sounds very cheerful. She basically does not have any specific complaint at this time. She slept well last night. PHYSICAL EXAMINATION GENERAL: The patient looks better. She looks more well than over the last few days, certainly better than she looked when she first came to the hospital. VITAL SIGNS: Blood pressure 147/69 with a pulse of 60, respirations 18, temperature 97.7, oxygen saturation 90% on 3 liters of oxygen by nasal cannula. Patient is now back to her baseline oxygen use. NECK: Supple. CHEST: Lungs were clear today. No wheezing. CARDIOVASCULAR: Regular rate and rhythm. ABDOMEN: Soft, nontender. EXTREMITIES: No cyanosis, no clubbing. Edema is improved significantly. NEUROLOGIC EXAM: Patient is alert, awake, oriented x3. Once in a while, patient is aware that she has some difficulty expressing herself. Today is probably the best she has been since being in the hospital setting. LABORATORY None this morning. ASSESSMENT 1. Chronic obstructive pulmonary disease with acute exacerbation, improving clinically. 2. Chronic hypoxia. Patient is now back to her baseline of oxygen utilization at home. 3. Generalized weakness, improving. 4. Acute delirium off and on symptoms. 5. Acute diarrhea now resolved. 6. Hypertension. Blood pressure is better controlled. 7. Type 2 diabetes, needing insulin. Blood sugar actually looking better lately. 8. Diabetic neuropathy. PLAN Continue current regimen. Refer to the MAR for details. Case Management to start process of [facility]. Will hopefully dismiss patient to [facility] tomorrow. Followup electrolytes in the morning. RICKID
[2017-05-17] MEDS: SIMVASTATIN 20 MG TABLET PO SCH (20:39)
[2017-05-17] MEDS: ZINC GLUCONATE 50 MG TABLET PO SCH (20:39)
[2017-05-17] MEDS: DULOXETINE 30 MG CAPSULE PO SCH (20:39)
[2017-05-17] MEDS: ZOLPIDEM 5 MG TABLET PO PRN (20:50)
[2017-05-18] MEDS: METHYLPREDNISOLONE SOD SUCC 125mg/2ml INJECTION IVP SCH ×2 (00:21→08:43)
[2017-05-18] MEDS: ALBUTEROL/IPRATROPIUM 2.5mg-0.5mg/3ml NEB AEROSOL SCH ×2 (08:10→11:53)
[2017-05-18] MEDS: BUDESONIDE INH.SOLN 0.5mg/2ml NEB AEROSOL SCH (08:11)
[2017-05-18] MEDS: INSULIN GLARGINE 100unit/ml INJECTION SQ SCH (08:38)
[2017-05-18] MEDS: LABETALOL 100 MG TABLET PO SCH (08:40)
[2017-05-18] MEDS: LISINOPRIL 20 MG TABLET PO SCH (08:41)
[2017-05-18] MEDS: AMLODIPINE 5 MG TABLET PO SCH (08:41)
[2017-05-18] MEDS: MAGNESIUM OXIDE 400 MG TABLET PO SCH (08:41)
[2017-05-18] MEDS: DULOXETINE 20 MG CAPSULE PO SCH (08:42)
[2017-05-18] MEDS: AZITHROMYCIN 500 MG TABLET PO SCH (08:42)
[2017-05-18] MEDS: INSULIN ASPART 100unit/ml INJECTION SQ SCH ×2 (09:02→13:12)
[2017-05-18 09:05] VITALS: BP 148/74; TEMP 95.5
[2017-05-18 09:13] VITALS: PULSE 62
[2017-05-18 12:01] VITALS: RESP 20; O2SAT 93
[2017-05-18] MEDS: NICOTINE 21 MG PATCH TD SCH (13:00)
--- NOTE | 2017-05-18 13:31 | Extended Care Facility Orders ---
Admission Orders Admit to:: Group Home Allergies/Adverse Reactions: Allergies minocycline Allergy (Intermediate, Verified 05/13/17 14:43) HIVES Penicillins Allergy (Unknown, Verified 05/13/17 14:43) Sulfa (Sulfonamide Antibiotics) Allergy (Unknown, Verified 05/13/17 14:43) Admitting Diagnosis: COPD exacerbation Admitting Physician: Jordy Limon MD Attending Physician: Jordy Limon MD Anticiapted Length of Stay: 30 days or less Rehab Potential: good Rehab Prognosis: good Diet: 05/13/17 Dinner Consistent Carbohydrate Diet [DIET] Calorie Level: 1800 May use Facility Protocol or Standing Orders: Yes May have flu vaccine: Yes Evaluations/Treatment: PT, OT Group Home Certification: I certify that SNF services are required to be given on an Inpatient basis because of the patients need for half-way care on a continuing basis for the condition(s) for which he/she received inpatient hospital services prior to his/her transfer to the SNF. SNF inpatient care is necessary for the following reasons Indication for Group Home: Teach Diabetes Mellitus Management, Teach COPD Management - Additional Information In Event of Arrest: Start CPR,call 911,send patient to the ER Resident is Aware of Diagnosis: Yes Referrals: Jordy Limon MD [Primary Care Provider] -
[2017-05-18] MEDS: NICOTINE PATCH REMOVAL TD SCH (15:00)
--- NOTE | 2017-07-04 12:02 | Discharge Summary ---
FINAL DIAGNOSES 1. COPD with [id number] exacerbation. 2. Chronic hypoxia. 3. Generalized weakness - treated and improved. 4. Acute delirium, probably multifactorial. 5. Acute diarrhea - treated and resolved. 6. Hypertension. Blood pressure is better controlled. 7. Diabetic neuropathy. 8. Type 2 diabetes [address]. CON[address]ULT[address] Song was consulted due to acute delirium. REASON FOR ADMISSION The patient is a 71-year-old female who presented to [facility] Emergency Room on the day of admission. She presented with chief complaint of 1 -1/2 to 2 week history of gradually worsening shortness of breath and coughing-- dry nonproductive cough with occasional yellowish sputum production. She was complaining of feeling chills and cold. In addition, she was having watery loose stools 2-4 episodes per day for the last 1-1/2 week as well. She got so weak at this time. She called 911 on the day of admission because she was requiring more oxygen and she felt like she could not stay home due to her significant weakness and need for more oxygen utilization. She denies hemoptysis. In addition, the patient had been having high blood pressure in the 190s/100 on multiple occasions lately. PHYSICAL EXAMINATION Blood pressure 150/79, pulse of 86, and 02 sat was 93% on 5 liters of oxygen by nasal cannula. LABORATORY CBC showed hemoglobin 17,500. Sodium 146. Potassium 3.9. CO2 32. Creatinine 0.7. BUN 11. Glucose 113. ProBNP 414. Plasma lactate 1.1. Procalcitonin less than 0.05. IMAGING Chest x-ray: Chronic lung disease, chronic congestion, and blunting of the left costophrenic angle. HOSPITAL COURSE This patient was admitted to the general medical floor under the care of Dr. Jordy Limon. The patient was started on broad spectrum IV antibiotics, IV steroid, breathing treatments. She continued to receive all these treatments throughout the hospitalization. She demonstrated waxing and waning acute delirium. For this, Dr. Song was consulted. A CT head was done: No acute intracranial abnormality or hemorrhage was found. The patient gradually got better as far as the delirium is concerned. She maxed out her hospital stay and therefore she was transferred to a long term home for continued antibiotics and breathing treatments and medication management and hopefully her delirium will be resolved and stay resolved. She was dismissed from [facility] on . DISMISSAL MEDICATION 1. Multivitamin 1 tablet daily. 2. Zinc 50 mg one tablet at bedtime. 3. Lantus 16 units subcutaneous b.i.d. 4. Magnesium oxide 400 mg one tablet daily. 5. Vitamin D3 1000 units q. daily. 6. NovoLog 25 units t.i.d. 7. Sebago 5/325 mg one tablet q. 4-6 hours p.r.n. 8. Lyrica 50 mg capsule one tablet t.i.d. p.r.n. 9. Cymbalta 20 mg delayed capsule one tablet in the morning. 10. Cymbalta 30 mg capsule one tablet at bedtime. 11. Labetalol 200 mg one tablet p.o. b.i.d. 12. Zocor 20 mg one tablet at bedtime. 13. DuoNeb via nebulization up to 3 or 4 times a day. 14. Potassium chloride 10 mEq one tablet on Sunday, , Sunday and Sunday. FOLLOWUP The patient will follow up with Dr. Limon in 1-2 weeks. [facility]
== END 2017-05-18 14:55 | DRG 190 ==
LOC: ED 13:54 → MED 16:56
PROVIDERS: ADMIT Family Medicine; ATTEND Family Medicine